=== PATIENT | male | born 1955 | race Two or more races ===

== ENCOUNTER 2016-11-12 15:10 | Inpatient (IN) | payer OTHER ==
[~2016-11-12] VITALS: Ht 180.3 cm; Wt 97.0 kg
[2016-11-12 17:14] LABS: CONDITION Y; Hematocrit 47.5 % (41.0-53.0); Mean Corpuscular Hemoglobin 29.9 pg (28.0-32.0); Mean Corpuscular Hgb Conc. 33.7 g/dL (32.0-36.0); Mean Corpuscular Volume 88.8 fL (80.0-100.0); Mean Platelet Volume 9.3 fL (7.4-10.4); Platelet Count (auto) 337 10^3/uL (140-450); Red Cell Distribution Width 13.4 % (11.6-16.0); SUSPECT SEE PRINTOUT; White Blood Cell 22.1 10^3/uL (4.4-10.8)
[2016-11-12 17:16] LABS: Metamyelocytes % 0; Myelocytes % 0; Promyelocytes % 0; Reactive Lymphocytes 0
[2016-11-12 17:30] LABS: Albumin 3.8 g/dL (3.4-5.0); Amylase 187 U/L (25-115); Anion Gap 13 (5-15); Aspartate Aminotransferase 36 U/L (15-37); BUN/Creatinine Ratio 10.4; Blood Urea Nitrogen 13 mg/dL (7-18); Calcium 8.6 mg/dL (8.5-10.1); Carbon Dioxide 25 mmol/L (21-32); Chloride 103 mmol/L (98-107); GFR African American 76 mL/min; GFR Non-African American 63 mL/min; Glucose 133 mg/dL (74-106); Potassium 4.1 mmol/L (3.5-5.1); Sodium 141 mmol/L (136-145)
[2016-11-12 17:35] LABS: Alkaline Phosphatase 72 U/L (45-117); Bilirubin, Total 2.2 mg/dL (0.2-1.0)
[2016-11-12 17:38] LABS: Platelet Estimate Adequate; Stomatocytes Few
[2016-11-13] MEDS ORDERED: MORPHINE SULFATE 4 MG/ML SYRG IV ONE (01:15)
[2016-11-13] MEDS ORDERED: SODIUM CHLORIDE 0.9% 1,000 ML IV ONE ×2 (01:15→05:30)
[2016-11-13] MEDS ORDERED: ONDANSETRON HCL 4 MG/2 ML VIAL IV ONE ×2 (01:15→04:15)
[2016-11-13] MEDS ORDERED: metroNIDAZOLE 500MG/100ML 100 ML IV ONE (04:00)
[2016-11-13] MEDS ORDERED: cefTRIAXone 1GM/50ML D5W 50 ML IV ONE (04:00)
[2016-11-13] MEDS: SODIUM CHLORIDE 0.9% 1,000 ML IV SCH ×8 (04:15→18:47)
[2016-11-13] MEDS ORDERED: HYDROmorphone HCL 2 MG/ML VL IV ONE (04:15)
[2016-11-13 04:40] LABS: INR 1.15 (0.9-1.15); Partial Thromboplastin Time 32.6 sec (22.64-33.71); Prothrombin Time 12.6 sec (9.37-12.3)
[2016-11-13] MEDS: metroNIDAZOLE 500MG/100ML 100 ML IV SCH ×3 (06:00→21:36)
[2016-11-13] MEDS: PANTOPRAZOLE SODIUM 40 MG/10 ML VIAL IV SCH ×2 (06:37→10:00)
[2016-11-13] MEDS ORDERED: fentaNYL CITRATE 100 MCG/2 ML VL ONE (07:23)
[2016-11-13] MEDS ORDERED: NEOSTIGMINE 1 MG/ML INJ (10mg/10ML VIAL) ONE (07:23)
[2016-11-13] MEDS ORDERED: KETOROLAC TROMETH 60MG/2ML VIAL IM ONE (07:23)
[2016-11-13] MEDS ORDERED: ROCURONIUM 10MG/ML 10ML VIAL IV ONE (07:23)
[2016-11-13] MEDS ORDERED: GLYCOPYRROLATE 0.2 MG/ML 1ML VIAL ONE (07:23)
[2016-11-13] MEDS ORDERED: MIDAZOLAM HCL 1MG/1ML-2 ML VIAL ONE (07:23)
[2016-11-13] MEDS ORDERED: MEPERIDINE HCL (50 MG/ML) 1 ML VIAL ONE (07:23)
[2016-11-13] MEDS ORDERED: SODIUM CHLORIDE LOCK 20 ML ONE (07:23)
[2016-11-13] MEDS ORDERED: ONDANSETRON HCL 4 MG/2 ML VIAL ONE (07:23)
[2016-11-13] MEDS ORDERED: SUCCINYLCHOLINE CHLORIDE 20 MG/ML 10ML VIAL IV ONE (07:44)
[2016-11-13] MEDS ORDERED: LIDOCAINE 1% HCL (LOCAL ANESTH.) INJ 20ML MDV ONE (07:44)
[2016-11-13 07:45] VITALS: BP 147/89
[2016-11-13] MEDS ORDERED: ceFAZolin 1GM/50ML D5W 50 ML IV ONE (08:15)
[2016-11-13] MEDS ORDERED: POVIDONE IODINE 10 % TOPICAL OINT 30GM TOP ONE (08:33)
[2016-11-13] MEDS ORDERED: PROPOFOL 10 MG/ML 20 ML IV ONE (08:43)
[2016-11-13] MEDS ORDERED: METOCLOPRAMIDE HCL 5MG/ml INJ 2ml VIAL IV ONE (10:00)
[2016-11-13] MEDS ORDERED: HYDROmorphone HCL 2 MG/ML VL IV PRN (10:00)
[2016-11-13] MEDS: cefTRIAXone 1GM/50ML D5W 50 ML IV SCH (12:29)
[2016-11-13 12:40] VITALS: BP 136/88
[2016-11-13 13:09] LABS: REFLEX LACTIC ACID YES OR NO NO
[2016-11-13 17:13] VITALS: BP 127/74
[2016-11-13] MEDS: MORPHINE SULFATE 4 MG/ML SYRG IV PRN (20:43)
[2016-11-13] MEDS: ONDANSETRON HCL 4 MG/2 ML VIAL IV PRN (20:43)
[2016-11-13 22:00] VITALS: BP 160/96
[2016-11-14] MEDS: SODIUM CHLORIDE 0.9% 1,000 ML IV SCH ×4 (03:46→15:09)
[2016-11-14] MEDS: MORPHINE SULFATE 4 MG/ML SYRG IV PRN ×4 (03:46→20:30)
[2016-11-14] MEDS: ONDANSETRON HCL 4 MG/2 ML VIAL IV PRN ×4 (03:46→20:30)
[2016-11-14 05:30] VITALS: BP 120/59
[2016-11-14] MEDS: metroNIDAZOLE 500MG/100ML 100 ML IV SCH ×3 (05:34→21:41)
[2016-11-14 06:13] LABS: Basophils # (auto) 0 uL; CONDITION Y; Eosinophils # (auto) 0 uL; Hemoglobin 12.8 g/dL (13.5-17.5); Lymphocytes # (auto) 0.5 uL; Lymphocytes % (auto) 3.5 % (10.0-50.0); Mean Corpuscular Hemoglobin 30.3 pg (28.0-32.0); Mean Corpuscular Hgb Conc. 33.6 g/dL (32.0-36.0); Mean Platelet Volume 9.5 fL (7.4-10.4); Monocytes # (auto) 0.3 uL; Monocytes % (auto) 2.4 % (0.0-12.0); Neutrophils # (auto) 13.6 uL; Neutrophils % (auto) 94.1 % (37.0-80.0); Platelet Count (auto) 233 10^3/uL (140-450); Red Cell Distribution Width 13.6 % (11.6-16.0); White Blood Cell 14.4 10^3/uL (4.4-10.8)
[2016-11-14 06:35] LABS: Albumin 2.7 g/dL (3.4-5.0); BUN/Creatinine Ratio 16.7; Calcium 8.3 mg/dL (8.5-10.1); Potassium 4.7 mmol/L (3.5-5.1)
[2016-11-14 06:38] LABS: Bilirubin, Total 1.2 mg/dL (0.2-1.0); Total Protein 6.5 g/dL (6.4-8.2)
[2016-11-14 08:32] VITALS: BP 136/88
[2016-11-14] MEDS: cefTRIAXone 1GM/50ML D5W 50 ML IV SCH (08:45)
[2016-11-14] MEDS: PANTOPRAZOLE SODIUM 40 MG/10 ML VIAL IV SCH (10:12)
[2016-11-14 13:00] VITALS: BP 142/86
[2016-11-14 16:53] VITALS: BP 157/98
[2016-11-14 21:39] VITALS: BP 135/84
[2016-11-15] MEDS: SODIUM CHLORIDE 0.9% 1,000 ML IV SCH ×4 (00:34→17:27)
[2016-11-15 05:08] LABS: Basophils # (auto) 0 uL; Basophils % (auto) 0.2 % (0.0-2.0); CONDITION Y; Eosinophils # (auto) 0 uL; Eosinophils % (auto) 0.5 % (0.0-7.0); Hematocrit 37.9 % (41.0-53.0); Hemoglobin 12.9 g/dL (13.5-17.5); Lymphocytes # (auto) 1.3 uL; Mean Corpuscular Hemoglobin 30.4 pg (28.0-32.0); Mean Corpuscular Hgb Conc. 33.9 g/dL (32.0-36.0); Mean Corpuscular Volume 89.6 fL (80.0-100.0); Mean Platelet Volume 8.9 fL (7.4-10.4); Monocytes # (auto) 0.4 uL; Neutrophils # (auto) 8.1 uL; Neutrophils % (auto) 82.3 % (37.0-80.0); Platelet Count (auto) 289 10^3/uL (140-450); Red Cell Distribution Width 13.2 % (11.6-16.0); White Blood Cell 9.8 10^3/uL (4.4-10.8)
[2016-11-15] MEDS: metroNIDAZOLE 500MG/100ML 100 ML IV SCH ×2 (05:12→17:35)
[2016-11-15] MEDS: MORPHINE SULFATE 4 MG/ML SYRG IV PRN ×3 (05:13→17:32)
[2016-11-15] MEDS: ONDANSETRON HCL 4 MG/2 ML VIAL IV PRN (05:13)
[2016-11-15 05:20] VITALS: BP 139/89
[2016-11-15 07:30] VITALS: BP 139/69
[2016-11-15 08:30] VITALS: BP 139/69
[2016-11-15] MEDS: PANTOPRAZOLE SODIUM 40 MG/10 ML VIAL IV SCH (10:19)
[2016-11-15] MEDS: cefTRIAXone 1GM/50ML D5W 50 ML IV SCH (10:19)
[2016-11-15] MEDS ORDERED: LEVO500T21 PO (11:59)
[2016-11-15] MEDS ORDERED: PANT40TA2 PO (11:59)
[2016-11-15 12:30] VITALS: BP 128/83
[2016-11-15 17:12] VITALS: BP 135/84
== END 2016-11-15 18:40 | disposition home or self-care (01) | DRG 854 ==
LOC: ER 15:17 → OVERFLOW 15:18 → WEST WING 11-13 10:55
PROVIDERS: ADMIT Family Medicine; ATTEND Nurse Practitioner Acute Care
PROC: 0FT44ZZ Resection of Gallbladder, Percutaneous Endoscopic Approach (ICD-10-PCS; principal; 2016-11-13 08:43)
DX: A41.9 Sepsis, unspecified organism (principal); K81.0 Acute cholecystitis; E66.9 Obesity, unspecified; Z68.29 Body mass index [BMI] 29.0-29.9, adult; Z82.49 Family history of ischemic heart disease and other diseases of the circulatory system; Z71.89 Other specified counseling; F12.90 Cannabis use, unspecified, uncomplicated
CPT/HCPCS: 36415; 71010; 74176; 80053; 82150; 82247; 83605; 83690; 84132; 84484; 85007; 85025; 85027; 85610; 85730; 86850; 86900; 86901; 87040; 93005; 96374; 96375; 96376; C9113; J0330; J0690; J0696; J1885; J2001; J2250; J2405; J2704; J3490

== ENCOUNTER 2020-04-02 07:27 | Inpatient (IN) | payer OTHER ==
[~2020-04-02] VITALS: Ht 180.3 cm; Wt 86.4 kg
[~2020-04-02 07:27] MED LIST: LEVO500T21 PO; PANT40TA2 PO
[2020-04-02 08:30] LABS: Urine Bacteria NONE SEEN /hpf (None Seen); Urine Blood Negative /uL (Negative); Urine Hyaline Cast FEW /lpf (0 - 2); Urine Mucus FEW (None Seen); Urine Specific Gravity 1.016 (1.001-1.035); Urine WBC 1 /hpf (0 - 3)
[2020-04-02 08:32] LABS: Basophils # (auto) 0 10 ^3/uL (0-0.2); Basophils % (auto) 0.2 % (0.0-2.0); Eosinophils # (auto) 0 10 ^3/uL (0-0.8); Eosinophils % (auto) 0.1 % (0.0-7.0); Hematocrit 49.7 % (41.0-53.0); Hemoglobin 16.5 g/dL (13.5-17.5); Lymphocytes # (auto) 0.6 10 ^3/uL (0.4-5.4); Lymphocytes % (auto) 3.7 % (10.0-50.0); Mean Corpuscular Hemoglobin 29.5 pg (28.0-32.0); Mean Corpuscular Hgb Conc. 33.1 g/dL (32.0-36.0); Mean Corpuscular Volume 88.9 fL (80.0-100.0); Monocytes # (auto) 0.5 10 ^3/uL (0-1.3); Monocytes % (auto) 3.1 % (0.0-12.0); Neutrophils # (auto) 14.2 10 ^3/uL (1.6-8.6); Neutrophils % (auto) 92.9 % (37.0-80.0); Nucleated Red Blood Cells % 0.1 %; Platelet Count (auto) 288 10^3/uL (140-450); Red Blood Cells 5.59 10^6/uL (4.5-5.90); Red Cell Distribution Width 13.4 % (11.8-14.3); White Blood Cell 15.3 10^3/uL (4.4-10.8)
[2020-04-02 08:37] LABS: Albumin 4.2 g/dL (3.4-5.0); Calcium 9.5 mg/dL (8.5-10.1); Potassium 3.4 mmol/L (3.5-5.1)
[2020-04-02 08:46] LABS: BUN/Creatinine Ratio 14.4; Bilirubin, Total 4.4 mg/dL (0.2-1.0); Total Protein 7.7 g/dL (6.4-8.2)
[2020-04-02] MEDS ORDERED: PANTOPRAZOLE 40 MG/10 ML VIAL INJ IV STA (09:11)
[2020-04-02] MEDS ORDERED: SODIUM CHLORIDE 0.9% 1,000 ML IVB ONE (09:15)
[2020-04-02] MEDS ORDERED: PROCHLORPERAZINE EDISYLATE 5 MG/ML 2ML VIAL IV ONE (09:15)
[2020-04-02] MEDS ORDERED: MORPHINE SULFATE 4 MG/ML SYR/VIAL IV ONE (09:15)
[2020-04-02] MEDS ORDERED: MORPHINE SULF INJ 2 MG/ML SYRINGE 1ML IV PRN (12:15)
[2020-04-02] MEDS ORDERED: POTASSIUM CHLORIDE 20 MEQ, LIDOCAINE 1% (LOCAL ANESTH.) 2 ML in SODIUM CHL 0.9% 100 ML IV ONE (12:15)
[2020-04-02] MEDS: LACTATED RINGER'S 1,000 ML IV SCH ×2 (12:15→20:15)
[2020-04-02] MEDS ORDERED: NITROGLYCERIN 0.4 MG SL TAB SL PRN (12:15)
[2020-04-02] MEDS: HYDROmorphone HCL 2 MG/ML VL IV PRN ×4 (14:00→22:12)
[2020-04-02] MEDS: ONDANSETRON HCL 4 MG/2 ML VIAL IV PRN ×2 (18:49→22:13)
[2020-04-02 20:00] VITALS: BP 148/102
[2020-04-02 22:00] VITALS: BP 148/102
[2020-04-03] MEDS: HYDROmorphone HCL 2 MG/ML VL IV PRN ×6 (02:18→20:41)
[2020-04-03] MEDS: LACTATED RINGER'S 1,000 ML IV SCH ×4 (04:15→22:56)
[2020-04-03 05:00] VITALS: BP 135/94
[2020-04-03] MEDS: ONDANSETRON HCL 4 MG/2 ML VIAL IV PRN (05:39)
[2020-04-03 07:25] LABS: Basophils # (auto) 0 10 ^3/uL (0-0.2); Basophils % (auto) 0.2 % (0.0-2.0); Eosinophils # (auto) 0 10 ^3/uL (0-0.8); Hematocrit 47.2 % (41.0-53.0); Hemoglobin 15.8 g/dL (13.5-17.5); Lymphocytes # (auto) 0.3 10 ^3/uL (0.4-5.4); Lymphocytes % (auto) 2.2 % (10.0-50.0); Mean Corpuscular Hemoglobin 30.1 pg (28.0-32.0); Mean Corpuscular Hgb Conc. 33.4 g/dL (32.0-36.0); Monocytes # (auto) 0.5 10 ^3/uL (0-1.3); Monocytes % (auto) 3.2 % (0.0-12.0); Neutrophils # (auto) 13.6 10 ^3/uL (1.6-8.6); Neutrophils % (auto) 94.4 % (37.0-80.0); Nucleated Red Blood Cells % 0.3 %; Platelet Count (auto) 215 10^3/uL (140-450); Red Blood Cells 5.25 10^6/uL (4.5-5.90); Red Cell Distribution Width 13.8 % (11.8-14.3); White Blood Cell 14.4 10^3/uL (4.4-10.8)
[2020-04-03 07:43] LABS: Albumin 3.5 g/dL (3.4-5.0); Calcium 8.7 mg/dL (8.5-10.1); Potassium 4.5 mmol/L (3.5-5.1)
[2020-04-03 07:52] LABS: BUN/Creatinine Ratio 12.7; Bilirubin, Total 3.3 mg/dL (0.2-1.0); Total Protein 6.9 g/dL (6.4-8.2)
[2020-04-03 09:00] VITALS: BP 128/90
[2020-04-03] MEDS: PANTOPRAZOLE 40 MG/10 ML VIAL INJ IV SCH (10:18)
[2020-04-03] MEDS ORDERED: LORazepam 2MG/ML-1ML VIAL IV ONE (12:15)
[2020-04-03 12:34] LABS: Hepatitis B Surface Antibody Negative
[2020-04-03 13:00] VITALS: BP 139/89
[2020-04-03 13:11] LABS: Hepatitis A Total Antibody Positive
[2020-04-03 13:37] LABS: Hepatitis B Core Total AB Negative; Hepatitis B Surface Antigen Negative (Negative); Hepatitis C Antibody Negative (Negative)
[2020-04-03 17:00] VITALS: BP 143/93
[2020-04-03 20:00] VITALS: BP 130/84
[2020-04-03 22:00] VITALS: BP 130/84
[2020-04-04] MEDS: HYDROmorphone HCL 2 MG/ML VL IV PRN ×5 (00:55→20:05)
[2020-04-04 05:00] VITALS: BP 140/82
[2020-04-04] MEDS: LACTATED RINGER'S 1,000 ML IV SCH ×3 (05:03→18:40)
[2020-04-04 06:22] LABS: Basophils # (auto) 0 10 ^3/uL (0-0.2); Basophils % (auto) 0.1 % (0.0-2.0); Eosinophils # (auto) 0 10 ^3/uL (0-0.8); Hematocrit 43.7 % (41.0-53.0); Hemoglobin 14.5 g/dL (13.5-17.5); Lymphocytes # (auto) 0.4 10 ^3/uL (0.4-5.4); Lymphocytes % (auto) 3.5 % (10.0-50.0); Mean Corpuscular Hemoglobin 29.6 pg (28.0-32.0); Mean Corpuscular Hgb Conc. 33.2 g/dL (32.0-36.0); Mean Corpuscular Volume 89.2 fL (80.0-100.0); Monocytes # (auto) 0.5 10 ^3/uL (0-1.3); Neutrophils # (auto) 10.7 10 ^3/uL (1.6-8.6); Neutrophils % (auto) 92.4 % (37.0-80.0); Nucleated Red Blood Cells % 0.1 %; Platelet Count (auto) 188 10^3/uL (140-450); White Blood Cell 11.6 10^3/uL (4.4-10.8)
[2020-04-04 06:40] LABS: Potassium 3.4 mmol/L (3.5-5.1)
[2020-04-04 07:04] LABS: Albumin 2.9 g/dL (3.4-5.0); BUN/Creatinine Ratio 16.1; Bilirubin, Total 3.4 mg/dL (0.2-1.0); Calcium 8.3 mg/dL (8.5-10.1); Magnesium 2.2 mg/dL (1.6-2.6); Total Protein 6.4 g/dL (6.4-8.2)
[2020-04-04 09:00] VITALS: BP 131/87
[2020-04-04] MEDS: PANTOPRAZOLE 40 MG/10 ML VIAL INJ IV SCH (10:09)
[2020-04-04 13:00] VITALS: BP 129/85
[2020-04-04 14:22] LABS: INR 1.11 (0.9-1.15)
[2020-04-04] MEDS: POTASSIUM CHL 20MEQ/100ML 100 ML IV SCH ×2 (16:44→18:36)
[2020-04-04 16:58] VITALS: BP 142/90
[2020-04-04 20:00] VITALS: BP 133/87
[2020-04-04] MEDS: ONDANSETRON HCL 4 MG/2 ML VIAL IV PRN (20:20)
[2020-04-04 22:00] VITALS: BP 133/87
[2020-04-05] MEDS: HYDROmorphone HCL 2 MG/ML VL IV PRN ×6 (01:17→23:08)
[2020-04-05] MEDS: LACTATED RINGER'S 1,000 ML IV SCH ×4 (01:21→21:20)
[2020-04-05 05:40] VITALS: BP 143/99
[2020-04-05] MEDS: ONDANSETRON HCL 4 MG/2 ML VIAL IV PRN (06:46)
[2020-04-05 06:58] LABS: Basophils # (auto) 0 10 ^3/uL (0-0.2); Basophils % (auto) 0.1 % (0.0-2.0); Eosinophils # (auto) 0 10 ^3/uL (0-0.8); Hemoglobin 13.6 g/dL (13.5-17.5); Lymphocytes # (auto) 0.3 10 ^3/uL (0.4-5.4); Lymphocytes % (auto) 3.8 % (10.0-50.0); Mean Corpuscular Hemoglobin 29.8 pg (28.0-32.0); Mean Corpuscular Hgb Conc. 33.1 g/dL (32.0-36.0); Monocytes # (auto) 0.5 10 ^3/uL (0-1.3); Monocytes % (auto) 6.2 % (0.0-12.0); Neutrophils # (auto) 7.7 10 ^3/uL (1.6-8.6); Neutrophils % (auto) 89.9 % (37.0-80.0); Nucleated Red Blood Cells % 0.1 %; Platelet Count (auto) 193 10^3/uL (140-450); Red Blood Cells 4.55 10^6/uL (4.5-5.90); Red Cell Distribution Width 13.4 % (11.8-14.3); White Blood Cell 8.6 10^3/uL (4.4-10.8)
[2020-04-05 07:20] LABS: Albumin 2.5 g/dL (3.4-5.0); Potassium 3.7 mmol/L (3.5-5.1)
[2020-04-05 07:26] LABS: Bilirubin, Direct 0.8 mg/dL (0-0.2); Bilirubin, Total 2.8 mg/dL (0.2-1.0); Total Protein 6.3 g/dL (6.4-8.2)
[2020-04-05 08:14] VITALS: BP 146/88
[2020-04-05] MEDS ORDERED: IOHEXOL 300 MG/ML 100ML BOTTLE IJ ONE (10:03)
[2020-04-05] MEDS ORDERED: MIDAZOLAM HCL 1MG/1ML-2 ML VIAL ONE (10:28)
[2020-04-05] MEDS ORDERED: fentaNYL CITRATE 100 MCG/2 ML VL ONE (10:28)
[2020-04-05] MEDS ORDERED: SUCCINYLCHOLINE CHLORIDE 20 MG/ML 10ML VIAL IV ONE (10:29)
[2020-04-05] MEDS ORDERED: PROPOFOL 10 MG/ML 20 ML IV ONE (10:40)
[2020-04-05 12:00] VITALS: BP 139/94
[2020-04-05] MEDS: PANTOPRAZOLE 40 MG/10 ML VIAL INJ IV SCH (13:30)
[2020-04-05 16:51] VITALS: BP 144/92
[2020-04-05 22:05] VITALS: BP 147/87
[2020-04-06] MEDS: ONDANSETRON HCL 4 MG/2 ML VIAL IV PRN ×2 (03:47→15:36)
[2020-04-06] MEDS: HYDROmorphone HCL 2 MG/ML VL IV PRN ×6 (03:50→22:01)
[2020-04-06 05:14] VITALS: BP 139/80
[2020-04-06 06:05] LABS: Basophils # (auto) 0 10 ^3/uL (0-0.2); Basophils % (auto) 0.1 % (0.0-2.0); Eosinophils # (auto) 0 10 ^3/uL (0-0.8); Eosinophils % (auto) 0.1 % (0.0-7.0); Hematocrit 36.9 % (41.0-53.0); Hemoglobin 12.2 g/dL (13.5-17.5); Lymphocytes # (auto) 0.4 10 ^3/uL (0.4-5.4); Lymphocytes % (auto) 4.9 % (10.0-50.0); Mean Corpuscular Hemoglobin 29.6 pg (28.0-32.0); Mean Corpuscular Hgb Conc. 32.9 g/dL (32.0-36.0); Mean Corpuscular Volume 90.1 fL (80.0-100.0); Monocytes # (auto) 0.7 10 ^3/uL (0-1.3); Monocytes % (auto) 8.4 % (0.0-12.0); Neutrophils % (auto) 86.5 % (37.0-80.0); Nucleated Red Blood Cells % 0.1 %; Platelet Count (auto) 176 10^3/uL (140-450); Red Cell Distribution Width 13.5 % (11.8-14.3)
[2020-04-06 06:45] LABS: Potassium 3.4 mmol/L (3.5-5.1)
[2020-04-06 07:03] LABS: Albumin 2.1 g/dL (3.4-5.0); BUN/Creatinine Ratio 16.7; Bilirubin, Total 2.3 mg/dL (0.2-1.0); Calcium 7.8 mg/dL (8.5-10.1); Total Protein 5.5 g/dL (6.4-8.2)
[2020-04-06] MEDS: PANTOPRAZOLE 40 MG/10 ML VIAL INJ IV SCH ×2 (08:41→22:01)
[2020-04-06 09:08] VITALS: BP 144/79
[2020-04-06] MEDS: LACTATED RINGER'S 1,000 ML IV SCH ×3 (10:40→22:28)
[2020-04-06 12:19] VITALS: BP 152/89
[2020-04-06] MEDS: SUCRALFATE 1 GM/10 ML ORAL SUSP PO SCH ×3 (13:05→22:01)
[2020-04-06] MEDS ORDERED: POTASSIUM CHLORIDE 20 MEQ, LIDOCAINE 1% (LOCAL ANESTH.) 2 ML in SODIUM CHL 0.9% 100 ML IV ONE (15:45)
[2020-04-06 16:05] VITALS: BP 152/79
[2020-04-06 22:00] VITALS: BP 161/108
[2020-04-07] MEDS: HYDROmorphone HCL 2 MG/ML VL IV PRN ×8 (00:44→23:21)
[2020-04-07] MEDS: LACTATED RINGER'S 1,000 ML IV SCH ×4 (03:12→15:30)
[2020-04-07 05:00] VITALS: BP 154/92
[2020-04-07] MEDS: SUCRALFATE 1 GM/10 ML ORAL SUSP PO SCH ×4 (06:01→22:02)
[2020-04-07 06:40] LABS: Potassium 3.4 mmol/L (3.5-5.1)
[2020-04-07 08:14] LABS: Basophils # (auto) 0 10 ^3/uL (0-0.2); Basophils % (auto) 0.1 % (0.0-2.0); Eosinophils # (auto) 0 10 ^3/uL (0-0.8); Eosinophils % (auto) 0.2 % (0.0-7.0); Hematocrit 36.9 % (41.0-53.0); Hemoglobin 12.4 g/dL (13.5-17.5); Lymphocytes # (auto) 0.5 10 ^3/uL (0.4-5.4); Lymphocytes % (auto) 5.2 % (10.0-50.0); Mean Corpuscular Hgb Conc. 33.6 g/dL (32.0-36.0); Mean Corpuscular Volume 89.5 fL (80.0-100.0); Monocytes # (auto) 0.8 10 ^3/uL (0-1.3); Monocytes % (auto) 8.5 % (0.0-12.0); Nucleated Red Blood Cells % 0.1 %; Platelet Count (auto) 191 10^3/uL (140-450); Red Blood Cells 4.12 10^6/uL (4.5-5.90); Red Cell Distribution Width 13.6 % (11.8-14.3); White Blood Cell 9.3 10^3/uL (4.4-10.8)
[2020-04-07 09:00] VITALS: BP 137/90
[2020-04-07] MEDS: PANTOPRAZOLE 40 MG/10 ML VIAL INJ IV SCH ×2 (09:17→22:02)
[2020-04-07 10:41] LABS: BUN/Creatinine Ratio 14.9; Bilirubin, Total 1.7 mg/dL (0.2-1.0); Calcium 8.1 mg/dL (8.5-10.1)
[2020-04-07 13:00] VITALS: BP 138/78
[2020-04-07] MEDS ORDERED: POTASSIUM CHL 20 Meq TABLET PO ONE (15:30)
[2020-04-07 17:00] VITALS: BP 141/83
[2020-04-07 20:00] VITALS: BP 145/72
[2020-04-07 22:00] VITALS: BP 145/72
[2020-04-07] MEDS ORDERED: ACETAMINOPHEN 325 MG TAB PO PRN (22:00)
[2020-04-08 05:00] VITALS: BP 160/86
[2020-04-08] MEDS: HYDROmorphone HCL 2 MG/ML VL IV PRN (05:36)
[2020-04-08] MEDS: LACTATED RINGER'S 1,000 ML IV SCH (05:37)
[2020-04-08] MEDS: SUCRALFATE 1 GM/10 ML ORAL SUSP PO SCH ×4 (06:39→19:47)
[2020-04-08 07:32] LABS: Magnesium 2.2 mg/dL (1.6-2.6); Potassium 3.3 mmol/L (3.5-5.1)
[2020-04-08] MEDS ORDERED: POTASSIUM CHL 20 Meq TABLET PO ONE (09:15)
[2020-04-08] MEDS: PANTOPRAZOLE 40 MG/10 ML VIAL INJ IV SCH ×2 (09:24→19:47)
[2020-04-08 09:54] VITALS: BP 153/85
[2020-04-08] MEDS ORDERED: amLODIPine BESYLATE 5 MG TAB PO ONE (10:00)
[2020-04-08] MEDS ORDERED: HYDROcodone-ACET 5/325MG TAB PO PRN (10:00)
[2020-04-08] MEDS: KETOROLAC TROMETH 30 MG/ML 1ML VIAL IV PRN ×2 (11:30→19:47)
[2020-04-08] MEDS: SODIUM CHLORIDE 0.9% 1,000 ML IV SCH (11:43)
[2020-04-08] MEDS ORDERED: LACTULOSE 20Gm/30ML SOLN PO PRN (11:45)
[2020-04-08] MEDS ORDERED: HYOSCYAMINE SULF 0.125 MG ODT TAB PO PRN (12:15)
[2020-04-08] MEDS ORDERED: cefTRIAXone 1GM/50ML D5W 50 ML IV ONE (13:00)
[2020-04-08] MEDS ORDERED: levoFLOXacin 750MG 150 ML IV ONE (13:15)
[2020-04-08 13:52] VITALS: BP 144/84
[2020-04-08 16:40] VITALS: BP 154/100
[2020-04-08] MEDS ORDERED: IOHEXOL 300 MG/ML 100ML BOTTLE IJ ONE (17:04)
[2020-04-08 17:58] LABS: Urine Bacteria NONE SEEN /hpf (None Seen); Urine Blood 1+ /uL (Negative); Urine Mucus FEW (None Seen); Urine Specific Gravity 1.018 (1.001-1.035); Urine WBC 3 /hpf (0 - 3)
[2020-04-08 22:00] VITALS: BP 131/81
[2020-04-09] VITALS (7 sets, daily range): BP systolic 127–154; BP diastolic 71–94
[2020-04-09] MEDS: KETOROLAC TROMETH 30 MG/ML 1ML VIAL IV PRN (02:17)
[2020-04-09 06:16] LABS: Basophils # (auto) 0 10 ^3/uL (0-0.2); Basophils % (auto) 0.1 % (0.0-2.0); Eosinophils # (auto) 0 10 ^3/uL (0-0.8); Eosinophils % (auto) 0.3 % (0.0-7.0); Hematocrit 38.1 % (41.0-53.0); Hemoglobin 12.9 g/dL (13.5-17.5); Lymphocytes # (auto) 0.6 10 ^3/uL (0.4-5.4); Mean Corpuscular Hgb Conc. 33.8 g/dL (32.0-36.0); Mean Corpuscular Volume 88.9 fL (80.0-100.0); Monocytes # (auto) 0.7 10 ^3/uL (0-1.3); Monocytes % (auto) 5.8 % (0.0-12.0); Neutrophils # (auto) 10.9 10 ^3/uL (1.6-8.6); Neutrophils % (auto) 88.8 % (37.0-80.0); Platelet Count (auto) 267 10^3/uL (140-450); Red Blood Cells 4.28 10^6/uL (4.5-5.90); Red Cell Distribution Width 13.5 % (11.8-14.3); White Blood Cell 12.3 10^3/uL (4.4-10.8)
[2020-04-09] MEDS: SUCRALFATE 1 GM/10 ML ORAL SUSP PO SCH ×4 (06:16→21:51)
[2020-04-09] MEDS: SODIUM CHLORIDE 0.9% 1,000 ML IV SCH (06:16)
[2020-04-09 06:46] LABS: BUN/Creatinine Ratio 13.9; Potassium 3.4 mmol/L (3.5-5.1)
[2020-04-09 06:53] LABS: Bilirubin, Total 0.9 mg/dL (0.2-1.0)
[2020-04-09] MEDS ORDERED: cefTRIAXone 1GM/50ML D5W 50 ML IV SCH (09:00)
[2020-04-09] MEDS: PANTOPRAZOLE 40 MG/10 ML VIAL INJ IV SCH ×2 (09:46→21:51)
[2020-04-09] MEDS: amLODIPine BESYLATE 5 MG TAB PO SCH (09:47)
[2020-04-09] MEDS ORDERED: levoFLOXacin 750MG 150 ML IV SCH (10:00)
[2020-04-09] MEDS: LACTATED RINGER'S 1,000 ML IV SCH ×3 (11:20→23:44)
[2020-04-09] MEDS: POTASSIUM CHL 20MEQ/100ML 100 ML IV SCH ×2 (15:08→18:00)
[2020-04-09] MEDS: HYDROmorphone HCL 2 MG/ML VL IV PRN ×2 (18:02→22:37)
[2020-04-09] MEDS: PIPERACILLIN-TAZOB 3.375GM 100 ML IV SCH (20:44)
[2020-04-10] MEDS: PIPERACILLIN-TAZOB 3.375GM 100 ML IV SCH ×5 (00:43→23:38)
[2020-04-10 05:21] VITALS: BP 153/65
[2020-04-10] MEDS: LACTATED RINGER'S 1,000 ML IV SCH ×3 (05:55→18:26)
[2020-04-10] MEDS: HYDROmorphone HCL 2 MG/ML VL IV PRN ×4 (06:00→19:44)
[2020-04-10] MEDS: SUCRALFATE 1 GM/10 ML ORAL SUSP PO SCH ×4 (06:36→22:20)
[2020-04-10 06:45] LABS: Basophils # (auto) 0 10 ^3/uL (0-0.2); Basophils % (auto) 0.1 % (0.0-2.0); Eosinophils # (auto) 0 10 ^3/uL (0-0.8); Eosinophils % (auto) 0.3 % (0.0-7.0); Hematocrit 38.6 % (41.0-53.0); Hemoglobin 12.6 g/dL (13.5-17.5); Lymphocytes # (auto) 0.5 10 ^3/uL (0.4-5.4); Lymphocytes % (auto) 3.3 % (10.0-50.0); Mean Corpuscular Hemoglobin 29.1 pg (28.0-32.0); Mean Corpuscular Hgb Conc. 32.7 g/dL (32.0-36.0); Monocytes # (auto) 0.8 10 ^3/uL (0-1.3); Monocytes % (auto) 5.3 % (0.0-12.0); Neutrophils # (auto) 14.2 10 ^3/uL (1.6-8.6); Nucleated Red Blood Cells % 0.1 %; Platelet Count (auto) 337 10^3/uL (140-450); Red Blood Cells 4.34 10^6/uL (4.5-5.90); Red Cell Distribution Width 13.4 % (11.8-14.3); White Blood Cell 15.6 10^3/uL (4.4-10.8)
[2020-04-10 08:27] VITALS: BP 141/83
[2020-04-10] MEDS: PANTOPRAZOLE 40 MG/10 ML VIAL INJ IV SCH ×2 (09:44→22:19)
[2020-04-10] MEDS: amLODIPine BESYLATE 5 MG TAB PO SCH ×2 (09:44→09:47)
[2020-04-10 13:14] VITALS: BP 137/84
[2020-04-10 16:45] VITALS: BP 145/73
[2020-04-10 22:00] VITALS: BP 158/83
[2020-04-11] MEDS: LACTATED RINGER'S 1,000 ML IV SCH ×4 (02:10→22:15)
[2020-04-11] MEDS: HYDROmorphone HCL 2 MG/ML VL IV PRN ×4 (02:11→20:54)
[2020-04-11 05:00] VITALS: BP 126/63
[2020-04-11] MEDS: PIPERACILLIN-TAZOB 3.375GM 100 ML IV SCH ×3 (05:35→17:04)
[2020-04-11] MEDS: SUCRALFATE 1 GM/10 ML ORAL SUSP PO SCH ×4 (06:45→22:46)
[2020-04-11 07:55] LABS: Basophils # (auto) 0 10 ^3/uL (0-0.2); Basophils % (auto) 0.2 % (0.0-2.0); Eosinophils # (auto) 0.1 10 ^3/uL (0-0.8); Eosinophils % (auto) 0.6 % (0.0-7.0); Hematocrit 40.2 % (41.0-53.0); Lymphocytes # (auto) 0.7 10 ^3/uL (0.4-5.4); Lymphocytes % (auto) 4.9 % (10.0-50.0); Mean Corpuscular Hemoglobin 28.8 pg (28.0-32.0); Mean Corpuscular Hgb Conc. 32.2 g/dL (32.0-36.0); Mean Corpuscular Volume 89.2 fL (80.0-100.0); Monocytes # (auto) 0.8 10 ^3/uL (0-1.3); Monocytes % (auto) 5.1 % (0.0-12.0); Neutrophils # (auto) 13.5 10 ^3/uL (1.6-8.6); Neutrophils % (auto) 89.2 % (37.0-80.0); Platelet Count (auto) 400 10^3/uL (140-450); Red Blood Cells 4.51 10^6/uL (4.5-5.90); Red Cell Distribution Width 13.7 % (11.8-14.3); White Blood Cell 15.1 10^3/uL (4.4-10.8)
[2020-04-11 09:00] VITALS: BP 137/75
[2020-04-11] MEDS: amLODIPine BESYLATE 5 MG TAB PO SCH (09:22)
[2020-04-11] MEDS: PANTOPRAZOLE 40 MG/10 ML VIAL INJ IV SCH ×2 (09:22→22:46)
[2020-04-11 13:00] VITALS: BP 140/72
[2020-04-11 17:00] VITALS: BP 134/76
[2020-04-11 22:00] VITALS: BP 137/85
[2020-04-12] MEDS: PIPERACILLIN-TAZOB 3.375GM 100 ML IV SCH ×5 (00:54→23:37)
[2020-04-12 05:00] VITALS: BP 140/86
[2020-04-12 05:15] LABS: Basophils # (auto) 0.1 10 ^3/uL (0-0.2); Basophils % (auto) 0.4 % (0.0-2.0); Eosinophils # (auto) 0.1 10 ^3/uL (0-0.8); Eosinophils % (auto) 0.6 % (0.0-7.0); Hemoglobin 12.5 g/dL (13.5-17.5); Lymphocytes # (auto) 0.7 10 ^3/uL (0.4-5.4)
[2020-04-12] MEDS: LACTATED RINGER'S 1,000 ML IV SCH ×3 (05:15→18:02)
[2020-04-12 05:16] LABS: Lymphocytes % (auto) 5.2 % (10.0-50.0); Mean Corpuscular Hgb Conc. 32.8 g/dL (32.0-36.0); Mean Corpuscular Volume 88.4 fL (80.0-100.0); Monocytes # (auto) 0.8 10 ^3/uL (0-1.3); Monocytes % (auto) 5.5 % (0.0-12.0); Neutrophils # (auto) 12.4 10 ^3/uL (1.6-8.6); Neutrophils % (auto) 88.3 % (37.0-80.0); Platelet Count (auto) 450 10^3/uL (140-450); Red Cell Distribution Width 13.7 % (11.8-14.3); White Blood Cell 14.1 10^3/uL (4.4-10.8)
[2020-04-12] MEDS: HYDROmorphone HCL 2 MG/ML VL IV PRN ×4 (05:32→23:43)
[2020-04-12] MEDS: SUCRALFATE 1 GM/10 ML ORAL SUSP PO SCH ×4 (07:10→21:39)
[2020-04-12 09:06] VITALS: BP 124/37
[2020-04-12] MEDS: PANTOPRAZOLE 40 MG/10 ML VIAL INJ IV SCH ×2 (09:54→21:39)
[2020-04-12] MEDS: amLODIPine BESYLATE 5 MG TAB PO SCH (10:02)
[2020-04-12 12:44] VITALS: BP 124/69
[2020-04-12 17:06] VITALS: BP 130/88
[2020-04-13 00:37] VITALS: BP 153/85
[2020-04-13] MEDS: LACTATED RINGER'S 1,000 ML IV SCH ×4 (00:48→20:43)
[2020-04-13] MEDS: PIPERACILLIN-TAZOB 3.375GM 100 ML IV SCH ×4 (05:16→23:19)
[2020-04-13] MEDS: HYDROmorphone HCL 2 MG/ML VL IV PRN ×5 (05:25→23:22)
[2020-04-13 05:26] LABS: Basophils # (auto) 0.1 10 ^3/uL (0-0.2); Basophils % (auto) 0.5 % (0.0-2.0); Eosinophils # (auto) 0.1 10 ^3/uL (0-0.8); Mean Corpuscular Hgb Conc. 34.7 g/dL (32.0-36.0); White Blood Cell 13.7 10^3/uL (4.4-10.8)
[2020-04-13 05:28] LABS: Eosinophils % (auto) 0.8 % (0.0-7.0); Hematocrit 37.5 % (41.0-53.0); Mean Corpuscular Hemoglobin 30.5 pg (28.0-32.0); Monocytes # (auto) 0.8 10 ^3/uL (0-1.3); Monocytes % (auto) 5.5 % (0.0-12.0); Neutrophils # (auto) 11.8 10 ^3/uL (1.6-8.6); Neutrophils % (auto) 86.2 % (37.0-80.0); Platelet Count (auto) 540 10^3/uL (140-450); Red Blood Cells 4.26 10^6/uL (4.5-5.90); Red Cell Distribution Width 13.5 % (11.8-14.3)
[2020-04-13 05:59] VITALS: BP 140/84
[2020-04-13] MEDS: SUCRALFATE 1 GM/10 ML ORAL SUSP PO SCH ×4 (06:30→20:43)
[2020-04-13 08:31] VITALS: BP 154/71
[2020-04-13] MEDS: PANTOPRAZOLE 40 MG/10 ML VIAL INJ IV SCH ×2 (09:58→20:43)
[2020-04-13] MEDS: amLODIPine BESYLATE 5 MG TAB PO SCH (09:59)
[2020-04-13 13:43] VITALS: BP 149/79
[2020-04-13 16:28] VITALS: BP 141/81
[2020-04-14] MEDS: HYDROmorphone HCL 2 MG/ML VL IV PRN ×7 (02:57→22:50)
[2020-04-14] MEDS: LACTATED RINGER'S 1,000 ML IV SCH ×4 (03:35→23:35)
[2020-04-14] MEDS: ONDANSETRON HCL 4 MG/2 ML VIAL IV PRN ×2 (04:51→09:01)
[2020-04-14] MEDS: SUCRALFATE 1 GM/10 ML ORAL SUSP PO SCH ×4 (05:29→20:22)
[2020-04-14] MEDS: PIPERACILLIN-TAZOB 3.375GM 100 ML IV SCH ×4 (05:29→23:05)
[2020-04-14 06:04] LABS: Basophils # (auto) 0.1 10 ^3/uL (0-0.2); Basophils % (auto) 0.3 % (0.0-2.0); Eosinophils # (auto) 0.1 10 ^3/uL (0-0.8); Eosinophils % (auto) 0.4 % (0.0-7.0); Hematocrit 39.1 % (41.0-53.0); Hemoglobin 12.7 g/dL (13.5-17.5); Lymphocytes # (auto) 0.7 10 ^3/uL (0.4-5.4); Lymphocytes % (auto) 4.7 % (10.0-50.0); Mean Corpuscular Hemoglobin 29.1 pg (28.0-32.0); Mean Corpuscular Hgb Conc. 32.4 g/dL (32.0-36.0); Mean Corpuscular Volume 89.9 fL (80.0-100.0); Monocytes # (auto) 0.8 10 ^3/uL (0-1.3); Neutrophils # (auto) 14.3 10 ^3/uL (1.6-8.6); Neutrophils % (auto) 89.6 % (37.0-80.0); Red Blood Cells 4.35 10^6/uL (4.5-5.90); Red Cell Distribution Width 13.5 % (11.8-14.3); White Blood Cell 15.9 10^3/uL (4.4-10.8)
[2020-04-14 06:25] VITALS: BP 146/83
[2020-04-14 06:29] LABS: Calcium 8.1 mg/dL (8.5-10.1); Magnesium 2.2 mg/dL (1.6-2.6); Potassium 3.7 mmol/L (3.5-5.1)
[2020-04-14 06:31] LABS: BUN/Creatinine Ratio 6.3
[2020-04-14 08:02] LABS: Platelet Count (auto) 619 10^3/uL (140-450)
[2020-04-14 09:01] VITALS: BP 156/95
[2020-04-14] MEDS: PANTOPRAZOLE 40 MG/10 ML VIAL INJ IV SCH ×2 (09:01→20:21)
[2020-04-14] MEDS: amLODIPine BESYLATE 5 MG TAB PO SCH (09:03)
[2020-04-14 11:56] VITALS: BP 155/83
[2020-04-14 17:00] VITALS: BP 127/85
[2020-04-14 22:00] VITALS: BP 148/89
[2020-04-15] MEDS: HYDROmorphone HCL 2 MG/ML VL IV PRN ×6 (01:01→23:08)
[2020-04-15] MEDS: PIPERACILLIN-TAZOB 3.375GM 100 ML IV SCH ×3 (05:13→17:38)
[2020-04-15] MEDS: LACTATED RINGER'S 1,000 ML IV SCH ×3 (05:13→19:35)
[2020-04-15] MEDS: SUCRALFATE 1 GM/10 ML ORAL SUSP PO SCH ×4 (05:14→22:00)
[2020-04-15 05:17] VITALS: BP 144/84
[2020-04-15 06:18] LABS: Basophils # (auto) 0.1 10 ^3/uL (0-0.2); Lymphocytes # (auto) 0.8 10 ^3/uL (0.4-5.4); Monocytes # (auto) 0.8 10 ^3/uL (0-1.3); Red Cell Distribution Width 13.4 % (11.8-14.3)
[2020-04-15 06:24] LABS: Basophils % (auto) 0.3 % (0.0-2.0); Eosinophils # (auto) 0 10 ^3/uL (0-0.8); Eosinophils % (auto) 0.3 % (0.0-7.0); Hematocrit 37.1 % (41.0-53.0); Hemoglobin 12.5 g/dL (13.5-17.5); Lymphocytes % (auto) 4.9 % (10.0-50.0); Mean Corpuscular Hemoglobin 29.9 pg (28.0-32.0); Mean Corpuscular Hgb Conc. 33.6 g/dL (32.0-36.0); Mean Corpuscular Volume 88.8 fL (80.0-100.0); Monocytes % (auto) 5.2 % (0.0-12.0); Neutrophils # (auto) 14.1 10 ^3/uL (1.6-8.6); Neutrophils % (auto) 89.3 % (37.0-80.0); Platelet Count (auto) 632 10^3/uL (140-450); Red Blood Cells 4.18 10^6/uL (4.5-5.90); White Blood Cell 15.8 10^3/uL (4.4-10.8)
[2020-04-15 08:00] VITALS: BP 131/83
[2020-04-15] MEDS ORDERED: IOHEXOL 300 MG/ML 100ML BOTTLE IJ ONE (08:01)
[2020-04-15] MEDS: PANTOPRAZOLE 40 MG/10 ML VIAL INJ IV SCH ×2 (08:20→23:08)
[2020-04-15] MEDS: amLODIPine BESYLATE 5 MG TAB PO SCH (08:21)
[2020-04-15 09:00] VITALS: BP 131/83
[2020-04-15 10:15] LABS: Monocytes # (auto) 0.9 10 ^3/uL (0-1.3)
[2020-04-15 10:16] LABS: Basophils # (auto) 0 10 ^3/uL (0-0.2); Basophils % (auto) 0.2 % (0.0-2.0); Eosinophils # (auto) 0.1 10 ^3/uL (0-0.8); Eosinophils % (auto) 0.5 % (0.0-7.0); Hematocrit 36.3 % (41.0-53.0); Lymphocytes # (auto) 0.7 10 ^3/uL (0.4-5.4); Lymphocytes % (auto) 4.2 % (10.0-50.0); Mean Corpuscular Hemoglobin 29.3 pg (28.0-32.0); Mean Corpuscular Hgb Conc. 33.1 g/dL (32.0-36.0); Mean Corpuscular Volume 88.5 fL (80.0-100.0); Monocytes % (auto) 5.4 % (0.0-12.0); Neutrophils # (auto) 14.2 10 ^3/uL (1.6-8.6); Neutrophils % (auto) 89.7 % (37.0-80.0); Platelet Count (auto) 652 10^3/uL (140-450); Red Cell Distribution Width 13.4 % (11.8-14.3); White Blood Cell 15.9 10^3/uL (4.4-10.8)
[2020-04-15 10:29] LABS: INR 1.27 (0.9-1.15)
[2020-04-15 13:00] VITALS: BP 139/78
[2020-04-15] MEDS ORDERED: IODIXANOL 320MG/ML 100ML BTL IV ONE (13:06)
[2020-04-15] MEDS ORDERED: LIDOCAINE 2%HCL (LOCAL ANESTH.) INJ 20ML MDV ONE (13:07)
[2020-04-15] MEDS ORDERED: fentaNYL CITRATE 100 MCG/2 ML VL ONE (13:10)
[2020-04-15] MEDS ORDERED: MIDAZOLAM HCL 1MG/1ML-2 ML VIAL ONE (13:11)
[2020-04-15] MEDS ORDERED: diphenhdrAMINE HCL 50 MG/1 ML VL ONE (14:51)
[2020-04-15] MEDS ORDERED: IOHEXOL 350 MG/ML 100ML IJ ONE ×2 (15:15→16:09)
[2020-04-15] MEDS ORDERED: HYDROmorphone HCL 2 MG/ML VL ONE (15:25)
[2020-04-15] MEDS ORDERED: ONDANSETRON HCL 4 MG/2 ML VIAL ONE (16:12)
[2020-04-15 22:00] VITALS: BP 107/61
[2020-04-15] MEDS: ONDANSETRON HCL 4 MG/2 ML VIAL IV PRN (23:08)
[2020-04-16] MEDS: PIPERACILLIN-TAZOB 3.375GM 100 ML IV SCH ×4 (00:08→21:28)
[2020-04-16] MEDS: HYDROmorphone HCL 2 MG/ML VL IV PRN ×5 (01:02→18:52)
[2020-04-16] MEDS: LACTATED RINGER'S 1,000 ML IV SCH ×5 (02:15→20:29)
[2020-04-16 05:00] VITALS: BP 99/66
[2020-04-16] MEDS: SUCRALFATE 1 GM/10 ML ORAL SUSP PO SCH (06:34)
[2020-04-16 08:56] VITALS: BP 98/66
[2020-04-16] MEDS ORDERED: THIAMINE HCL 100 MG TAB PO SCH (10:00)
[2020-04-16] MEDS ORDERED: FOLIC ACID 1 MG TAB PO SCH (10:00)
[2020-04-16] MEDS: ONDANSETRON HCL 4 MG/2 ML VIAL IV PRN ×3 (11:01→20:19)
[2020-04-16] MEDS ORDERED: PANTOPRAZOLE 40 MG/10 ML VIAL INJ IV ONE (11:15)
[2020-04-16] MEDS ORDERED: TPN PER PHARMACY 0 ML IV SCH (11:15)
[2020-04-16 12:15] LABS: Magnesium 2.1 mg/dL (1.6-2.6); Potassium 4.2 mmol/L (3.5-5.1)
[2020-04-16 12:22] LABS: Albumin 2.1 g/dL (3.4-5.0); BUN/Creatinine Ratio 9.3; Bilirubin, Total 1.7 mg/dL (0.2-1.0); Calcium 8.4 mg/dL (8.5-10.1); Phosphorus 5.4 mg/dL (2.5-4.90); Total Protein 6.4 g/dL (6.4-8.2)
[2020-04-16 13:00] VITALS: BP 109/71
[2020-04-16] MEDS ORDERED: LIDOCAINE 1% (LOCAL ANESTH.) PF 5ml SDV ID ONE (15:15)
[2020-04-16 17:00] VITALS: BP 99/66
[2020-04-16 20:00] VITALS: BP 122/77
[2020-04-16] MEDS ORDERED: PPN PER PHARMACY IV NR ×7 (20:00)
[2020-04-16] MEDS: SODIUM CHLOR 0.9% PF (SALINE LOCK) 10ML VIAL/SYR IV SCH (21:28)
[2020-04-16 22:00] VITALS: BP 122/77
[2020-04-16] MEDS: InsuLIN REG 1unit/0.01ml Soln (100units/ml) SC SCH (23:32)
[2020-04-16] MEDS: ACCU-CHEK COMFORT CURVE STRIP VI SCH (23:32)
[2020-04-17] MEDS ORDERED: DEXTROSE (50%) 50ML SYRG IV SCH
[2020-04-17] MEDS: HYDROmorphone HCL 2 MG/ML VL IV PRN ×5 (00:15→19:53)
[2020-04-17] MEDS: ONDANSETRON HCL 4 MG/2 ML VIAL IV PRN ×4 (00:22→18:27)
[2020-04-17] MEDS: PIPERACILLIN-TAZOB 3.375GM 100 ML IV SCH ×4 (03:24→21:20)
[2020-04-17 05:00] VITALS: BP 123/74
[2020-04-17] MEDS: ACCU-CHEK COMFORT CURVE STRIP VI SCH ×3 (05:43→18:26)
[2020-04-17] MEDS: InsuLIN REG 1unit/0.01ml Soln (100units/ml) SC SCH ×3 (05:48→19:30)
[2020-04-17 06:15] LABS: Potassium 3.4 mmol/L (3.5-5.1)
[2020-04-17 06:26] LABS: Albumin 1.9 g/dL (3.4-5.0); BUN/Creatinine Ratio 12.8; Calcium 8.1 mg/dL (8.5-10.1); Magnesium 2.4 mg/dL (1.6-2.6); Total Protein 6.1 g/dL (6.4-8.2)
[2020-04-17] MEDS: LACTATED RINGER'S 1,000 ML IV SCH ×2 (07:58→20:04)
[2020-04-17 09:00] VITALS: BP 102/54
[2020-04-17] MEDS: SODIUM CHLOR 0.9% PF (SALINE LOCK) 10ML VIAL/SYR IV SCH ×2 (10:02→21:23)
[2020-04-17] MEDS: PANTOPRAZOLE 40 MG/10 ML VIAL INJ IV SCH (10:02)
[2020-04-17] MEDS: POTASSIUM CHL 20MEQ/100ML 100 ML IV SCH ×2 (10:02→13:30)
[2020-04-17] MEDS ORDERED: LACTATED RINGER'S 1,000 ML IV SCH (11:00)
[2020-04-17 13:00] VITALS: BP 116/72
[2020-04-17 16:36] VITALS: BP 121/78
[2020-04-17] MEDS ORDERED: TPN PER PHARMACY IV NR ×9 (20:00)
[2020-04-17 21:49] VITALS: BP 139/79
[2020-04-18] MEDS: ACCU-CHEK COMFORT CURVE STRIP VI SCH ×4 (00:07→17:40)
[2020-04-18] MEDS: InsuLIN REG 1unit/0.01ml Soln (100units/ml) SC SCH ×4 (00:09→17:40)
[2020-04-18] MEDS: PIPERACILLIN-TAZOB 3.375GM 100 ML IV SCH ×4 (03:24→21:56)
[2020-04-18] MEDS: ONDANSETRON HCL 4 MG/2 ML VIAL IV PRN ×4 (03:34→20:52)
[2020-04-18] MEDS: HYDROmorphone HCL 2 MG/ML VL IV PRN ×4 (03:34→20:52)
[2020-04-18 05:00] VITALS: BP 127/77
[2020-04-18 07:52] LABS: Basophils # (auto) 0.1 10 ^3/uL (0-0.2); Basophils % (auto) 0.4 % (0.0-2.0); Eosinophils # (auto) 0 10 ^3/uL (0-0.8); Hemoglobin 8.8 g/dL (13.5-17.5); Lymphocytes # (auto) 0.6 10 ^3/uL (0.4-5.4); Monocytes # (auto) 0.8 10 ^3/uL (0-1.3); Nucleated Red Blood Cells % 0.1 %
[2020-04-18 07:56] LABS: Eosinophils % (auto) 0.3 % (0.0-7.0); Hematocrit 26.1 % (41.0-53.0); Mean Corpuscular Hemoglobin 29.9 pg (28.0-32.0); Mean Corpuscular Hgb Conc. 33.7 g/dL (32.0-36.0); Mean Corpuscular Volume 88.7 fL (80.0-100.0); Monocytes % (auto) 5.3 % (0.0-12.0); Neutrophils # (auto) 13.6 10 ^3/uL (1.6-8.6); Platelet Count (auto) 655 10^3/uL (140-450); Red Blood Cells 2.94 10^6/uL (4.5-5.90); Red Cell Distribution Width 13.7 % (11.8-14.3); White Blood Cell 15.1 10^3/uL (4.4-10.8)
[2020-04-18 08:06] LABS: Amylase 148 U/L (25-115); Lipase 279 U/L (73-393)
[2020-04-18 08:10] LABS: Potassium 3.6 mmol/L (3.5-5.1)
[2020-04-18 08:19] LABS: Albumin 1.9 g/dL (3.4-5.0); BUN/Creatinine Ratio 16.4; Bilirubin, Total 0.8 mg/dL (0.2-1.0); Calcium 8.2 mg/dL (8.5-10.1); Magnesium 2.8 mg/dL (1.6-2.6); Phosphorus 2.8 mg/dL (2.5-4.90); Total Protein 6.3 g/dL (6.4-8.2)
[2020-04-18] MEDS: PANTOPRAZOLE 40 MG/10 ML VIAL INJ IV SCH (08:33)
[2020-04-18] MEDS: SODIUM CHLOR 0.9% PF (SALINE LOCK) 10ML VIAL/SYR IV SCH ×2 (08:33→21:56)
[2020-04-18 09:06] VITALS: BP 123/66
[2020-04-18] MEDS: LACTATED RINGER'S 1,000 ML IV SCH (12:40)
[2020-04-18 12:59] VITALS: BP 127/74
[2020-04-18 17:13] VITALS: BP 136/78
[2020-04-18 20:00] VITALS: BP 117/81
[2020-04-18] MEDS ORDERED: TPN PER PHARMACY IV NR ×8 (20:00)
[2020-04-18 22:00] VITALS: BP 117/81
[2020-04-19] MEDS: ACCU-CHEK COMFORT CURVE STRIP VI SCH ×4 (00:16→17:32)
[2020-04-19] MEDS: InsuLIN REG 1unit/0.01ml Soln (100units/ml) SC SCH ×4 (00:17→17:33)
[2020-04-19] MEDS: PIPERACILLIN-TAZOB 3.375GM 100 ML IV SCH ×4 (03:43→21:30)
[2020-04-19] MEDS: HYDROmorphone HCL 2 MG/ML VL IV PRN ×5 (03:44→21:31)
[2020-04-19] MEDS: ONDANSETRON HCL 4 MG/2 ML VIAL IV PRN ×5 (03:44→21:31)
[2020-04-19 05:43] VITALS: BP 130/75
[2020-04-19] MEDS: LACTATED RINGER'S 1,000 ML IV SCH ×2 (06:16→21:30)
[2020-04-19 07:18] LABS: Albumin 1.8 g/dL (3.4-5.0); Calcium 8.3 mg/dL (8.5-10.1); Potassium 3.8 mmol/L (3.5-5.1)
[2020-04-19 07:24] LABS: BUN/Creatinine Ratio 14.5; Magnesium 2.6 mg/dL (1.6-2.6); Phosphorus 3.1 mg/dL (2.5-4.90); Total Protein 6.2 g/dL (6.4-8.2)
[2020-04-19] MEDS: PANTOPRAZOLE 40 MG/10 ML VIAL INJ IV SCH (08:46)
[2020-04-19] MEDS: SODIUM CHLOR 0.9% PF (SALINE LOCK) 10ML VIAL/SYR IV SCH ×2 (08:46→21:30)
[2020-04-19 09:00] VITALS: BP 136/80
[2020-04-19 09:00] LABS: Basophils # (auto) 0.1 10 ^3/uL (0-0.2); Eosinophils # (auto) 0.1 10 ^3/uL (0-0.8); Hemoglobin 8.3 g/dL (13.5-17.5); White Blood Cell 12.1 10^3/uL (4.4-10.8)
[2020-04-19 09:03] LABS: Basophils % (auto) 0.6 % (0.0-2.0); Eosinophils % (auto) 0.4 % (0.0-7.0); Hematocrit 25.7 % (41.0-53.0); Lymphocytes # (auto) 0.5 10 ^3/uL (0.4-5.4); Lymphocytes % (auto) 4.5 % (10.0-50.0); Mean Corpuscular Hgb Conc. 32.2 g/dL (32.0-36.0); Mean Corpuscular Volume 89.8 fL (80.0-100.0); Monocytes # (auto) 0.8 10 ^3/uL (0-1.3); Monocytes % (auto) 6.2 % (0.0-12.0); Neutrophils # (auto) 10.7 10 ^3/uL (1.6-8.6); Neutrophils % (auto) 88.3 % (37.0-80.0); Platelet Count (auto) 615 10^3/uL (140-450); Red Blood Cells 2.86 10^6/uL (4.5-5.90)
[2020-04-19 13:00] VITALS: BP 117/74
[2020-04-19 17:00] VITALS: BP 140/85
[2020-04-19 20:00] VITALS: BP 142/81
[2020-04-19] MEDS ORDERED: TPN PER PHARMACY IV NR ×17 (20:00)
[2020-04-19 22:00] VITALS: BP 142/81
[2020-04-20] MEDS: ACCU-CHEK COMFORT CURVE STRIP VI SCH ×4 (00:25→17:37)
[2020-04-20] MEDS: InsuLIN REG 1unit/0.01ml Soln (100units/ml) SC SCH ×4 (00:27→17:38)
[2020-04-20] MEDS: ONDANSETRON HCL 4 MG/2 ML VIAL IV PRN ×4 (03:02→21:52)
[2020-04-20] MEDS: HYDROmorphone HCL 2 MG/ML VL IV PRN ×5 (03:02→21:52)
[2020-04-20] MEDS: PIPERACILLIN-TAZOB 3.375GM 100 ML IV SCH ×4 (03:23→21:51)
[2020-04-20 05:00] VITALS: BP 129/82
[2020-04-20 06:58] LABS: Basophils # (auto) 0.1 10 ^3/uL (0-0.2); Eosinophils # (auto) 0.1 10 ^3/uL (0-0.8); Hemoglobin 9.2 g/dL (13.5-17.5); Lymphocytes # (auto) 0.6 10 ^3/uL (0.4-5.4)
[2020-04-20 07:01] LABS: Basophils % (auto) 0.9 % (0.0-2.0); Eosinophils % (auto) 1.1 % (0.0-7.0); Hematocrit 28.3 % (41.0-53.0); Lymphocytes % (auto) 5.6 % (10.0-50.0); Mean Corpuscular Hemoglobin 29.1 pg (28.0-32.0); Mean Corpuscular Hgb Conc. 32.5 g/dL (32.0-36.0); Mean Corpuscular Volume 89.4 fL (80.0-100.0); Monocytes # (auto) 0.7 10 ^3/uL (0-1.3); Monocytes % (auto) 6.8 % (0.0-12.0); Neutrophils # (auto) 9.4 10 ^3/uL (1.6-8.6); Neutrophils % (auto) 85.6 % (37.0-80.0); Platelet Count (auto) 629 10^3/uL (140-450); Red Blood Cells 3.16 10^6/uL (4.5-5.90); Red Cell Distribution Width 13.7 % (11.8-14.3); White Blood Cell 10.9 10^3/uL (4.4-10.8)
[2020-04-20 07:11] LABS: INR 1.13 (0.9-1.15)
[2020-04-20 07:29] LABS: Albumin 1.9 g/dL (3.4-5.0); Calcium 8.3 mg/dL (8.5-10.1); Magnesium 2.4 mg/dL (1.6-2.6)
[2020-04-20 07:32] LABS: BUN/Creatinine Ratio 17.4; Bilirubin, Total 1.1 mg/dL (0.2-1.0); Total Protein 6.4 g/dL (6.4-8.2)
[2020-04-20 09:00] VITALS: BP 140/85
[2020-04-20] MEDS: SODIUM CHLOR 0.9% PF (SALINE LOCK) 10ML VIAL/SYR IV SCH ×2 (09:20→21:51)
[2020-04-20] MEDS: PANTOPRAZOLE 40 MG/10 ML VIAL INJ IV SCH (09:20)
[2020-04-20 13:00] VITALS: BP 127/81
[2020-04-20] MEDS: LACTATED RINGER'S 1,000 ML IV SCH (14:40)
[2020-04-20 16:34] VITALS: BP 140/87
[2020-04-20 20:00] VITALS: BP 139/87
[2020-04-20] MEDS ORDERED: TPN PER PHARMACY IV NR ×10 (20:00)
[2020-04-20 22:00] VITALS: BP 139/87
[2020-04-21] MEDS: ACCU-CHEK COMFORT CURVE STRIP VI SCH ×4 (00:13→17:56)
[2020-04-21] MEDS: InsuLIN REG 1unit/0.01ml Soln (100units/ml) SC SCH ×4 (00:14→17:56)
[2020-04-21] MEDS: PIPERACILLIN-TAZOB 3.375GM 100 ML IV SCH ×4 (03:26→20:57)
[2020-04-21 05:00] VITALS: BP 123/81
[2020-04-21] MEDS: HYDROmorphone HCL 2 MG/ML VL IV PRN ×4 (06:41→20:58)
[2020-04-21] MEDS: ONDANSETRON HCL 4 MG/2 ML VIAL IV PRN ×4 (06:41→20:59)
[2020-04-21 07:15] LABS: Basophils # (auto) 0.1 10 ^3/uL (0-0.2); Eosinophils # (auto) 0.2 10 ^3/uL (0-0.8); Monocytes # (auto) 0.8 10 ^3/uL (0-1.3)
[2020-04-21 07:17] LABS: Eosinophils % (auto) 1.5 % (0.0-7.0); Hematocrit 28.2 % (41.0-53.0); Hemoglobin 9.4 g/dL (13.5-17.5); Lymphocytes # (auto) 0.6 10 ^3/uL (0.4-5.4); Lymphocytes % (auto) 5.8 % (10.0-50.0); Mean Corpuscular Hemoglobin 29.6 pg (28.0-32.0); Mean Corpuscular Hgb Conc. 33.3 g/dL (32.0-36.0); Mean Corpuscular Volume 88.9 fL (80.0-100.0); Monocytes % (auto) 7.3 % (0.0-12.0); Neutrophils # (auto) 9.1 10 ^3/uL (1.6-8.6); Neutrophils % (auto) 84.4 % (37.0-80.0); Platelet Count (auto) 620 10^3/uL (140-450); Red Blood Cells 3.17 10^6/uL (4.5-5.90); Red Cell Distribution Width 13.8 % (11.8-14.3); White Blood Cell 10.8 10^3/uL (4.4-10.8)
[2020-04-21] MEDS: LACTATED RINGER'S 1,000 ML IV SCH (07:20)
[2020-04-21 07:36] LABS: Potassium 3.6 mmol/L (3.5-5.1)
[2020-04-21 07:46] LABS: Albumin 1.8 g/dL (3.4-5.0); BUN/Creatinine Ratio 20.4; Bilirubin, Total 1.2 mg/dL (0.2-1.0); Calcium 8.3 mg/dL (8.5-10.1); Magnesium 2.2 mg/dL (1.6-2.6); Phosphorus 2.7 mg/dL (2.5-4.90); Total Protein 6.4 g/dL (6.4-8.2)
[2020-04-21 08:30] VITALS: BP 116/92
[2020-04-21 09:00] VITALS: BP 116/92
[2020-04-21] MEDS: PANTOPRAZOLE 40 MG/10 ML VIAL INJ IV SCH (09:18)
[2020-04-21] MEDS: SODIUM CHLOR 0.9% PF (SALINE LOCK) 10ML VIAL/SYR IV SCH ×2 (10:00→22:00)
[2020-04-21] MEDS ORDERED: IOHEXOL 350 MG/ML 100ML IJ ONE (10:58)
[2020-04-21] MEDS ORDERED: IOHEXOL 300 MG/ML 100ML BOTTLE IJ ONE (16:12)
[2020-04-21 17:00] VITALS: BP 123/86
[2020-04-21 20:00] VITALS: BP 199/84
[2020-04-21] MEDS ORDERED: TPN PER PHARMACY IV NR ×9 (20:00)
[2020-04-22] MEDS: LACTATED RINGER'S 1,000 ML IV SCH ×2 (00:23→16:36)
[2020-04-22] MEDS: ONDANSETRON HCL 4 MG/2 ML VIAL IV PRN ×4 (00:43→14:18)
[2020-04-22] MEDS: HYDROmorphone HCL 2 MG/ML VL IV PRN ×6 (00:43→22:25)
[2020-04-22] MEDS: PIPERACILLIN-TAZOB 3.375GM 100 ML IV SCH ×4 (03:30→21:40)
[2020-04-22 05:00] VITALS: BP 109/72
[2020-04-22] MEDS: ACCU-CHEK COMFORT CURVE STRIP VI SCH ×4 (05:13→18:17)
[2020-04-22] MEDS: InsuLIN REG 1unit/0.01ml Soln (100units/ml) SC SCH ×4 (05:14→18:18)
[2020-04-22 08:11] LABS: Basophils # (auto) 0.2 10 ^3/uL (0-0.2); Basophils % (auto) 1.9 % (0.0-2.0); Eosinophils # (auto) 0.2 10 ^3/uL (0-0.8); Eosinophils % (auto) 2.3 % (0.0-7.0); Lymphocytes # (auto) 0.7 10 ^3/uL (0.4-5.4); Monocytes # (auto) 0.8 10 ^3/uL (0-1.3); Red Blood Cells 3.28 10^6/uL (4.5-5.90); Red Cell Distribution Width 13.7 % (11.8-14.3)
[2020-04-22 08:14] LABS: Hematocrit 28.9 % (41.0-53.0); Hemoglobin 9.8 g/dL (13.5-17.5); Lymphocytes % (auto) 7.4 % (10.0-50.0); Mean Corpuscular Hemoglobin 29.8 pg (28.0-32.0); Mean Corpuscular Hgb Conc. 33.9 g/dL (32.0-36.0); Mean Corpuscular Volume 88.1 fL (80.0-100.0); Monocytes % (auto) 7.5 % (0.0-12.0); Neutrophils # (auto) 8.1 10 ^3/uL (1.6-8.6); Neutrophils % (auto) 80.9 % (37.0-80.0); Platelet Count (auto) 603 10^3/uL (140-450); White Blood Cell 10.1 10^3/uL (4.4-10.8)
[2020-04-22 08:29] LABS: Potassium 3.6 mmol/L (3.5-5.1)
[2020-04-22 08:42] LABS: Albumin 1.9 g/dL (3.4-5.0); BUN/Creatinine Ratio 17.8; Calcium 8.3 mg/dL (8.5-10.1); Magnesium 2.2 mg/dL (1.6-2.6); Phosphorus 2.9 mg/dL (2.5-4.90); Total Protein 6.4 g/dL (6.4-8.2)
[2020-04-22 09:00] VITALS: BP 135/70
[2020-04-22] MEDS: PANTOPRAZOLE 40 MG/10 ML VIAL INJ IV SCH (09:23)
[2020-04-22] MEDS: SODIUM CHLOR 0.9% PF (SALINE LOCK) 10ML VIAL/SYR IV SCH ×2 (09:24→22:25)
[2020-04-22] MEDS ORDERED: VANCOMYCIN PER PHARMACY 0 MG IV SCH (11:45)
[2020-04-22 13:00] VITALS: BP 113/89
[2020-04-22] MEDS ORDERED: VANCOMYCIN 1GM/250ML 250 ML IV ONE (13:00)
[2020-04-22 17:00] VITALS: BP 126/81
[2020-04-22 20:34] VITALS: BP 126/81
[2020-04-22 21:00] VITALS: BP 121/79
[2020-04-22] MEDS: TPN PER PHARMACY IV NR ×10 (21:00)
[2020-04-22] MEDS: VANCOMYCIN 1GM/250ML 250 ML IV SCH (23:38)
[2020-04-23] MEDS: HYDROmorphone HCL 2 MG/ML VL IV PRN ×5 (02:42→19:58)
[2020-04-23] MEDS: PIPERACILLIN-TAZOB 3.375GM 100 ML IV SCH ×4 (04:02→23:21)
[2020-04-23 05:00] VITALS: BP 121/76
[2020-04-23] MEDS: ACCU-CHEK COMFORT CURVE STRIP VI SCH ×4 (06:19→18:49)
[2020-04-23] MEDS: InsuLIN REG 1unit/0.01ml Soln (100units/ml) SC SCH ×4 (06:29→18:52)
[2020-04-23] MEDS ORDERED: LIDOCAINE 2%HCL (LOCAL ANESTH.) INJ 20ML MDV ONE (06:43)
[2020-04-23 07:54] LABS: Hematocrit 27.7 % (41.0-53.0); Lymphocytes # (auto) 0.6 10 ^3/uL (0.4-5.4); Mean Corpuscular Hemoglobin 28.9 pg (28.0-32.0); Monocytes # (auto) 0.8 10 ^3/uL (0-1.3); Red Cell Distribution Width 13.9 % (11.8-14.3); White Blood Cell 8.9 10^3/uL (4.4-10.8)
[2020-04-23 07:55] LABS: Basophils # (auto) 0.2 10 ^3/uL (0-0.2); Basophils % (auto) 1.8 % (0.0-2.0); Eosinophils # (auto) 0.2 10 ^3/uL (0-0.8); Eosinophils % (auto) 2.8 % (0.0-7.0); Lymphocytes % (auto) 6.9 % (10.0-50.0); Mean Corpuscular Hgb Conc. 32.5 g/dL (32.0-36.0); Mean Corpuscular Volume 88.9 fL (80.0-100.0); Neutrophils % (auto) 79.5 % (37.0-80.0); Platelet Count (auto) 576 10^3/uL (140-450); Red Blood Cells 3.12 10^6/uL (4.5-5.90)
[2020-04-23 08:09] LABS: Potassium 3.5 mmol/L (3.5-5.1)
[2020-04-23 08:16] LABS: Albumin 1.8 g/dL (3.4-5.0); Bilirubin, Total 0.8 mg/dL (0.2-1.0); Calcium 8.2 mg/dL (8.5-10.1); Total Protein 6.2 g/dL (6.4-8.2)
[2020-04-23 09:00] VITALS: BP 126/71
[2020-04-23] MEDS ORDERED: MIDAZOLAM HCL 1MG/1ML-2 ML VIAL IV ONE (09:00)
[2020-04-23] MEDS ORDERED: fentaNYL CITRATE 100 MCG/2 ML VL IV ONE (09:00)
[2020-04-23] MEDS ORDERED: POTASSIUM CHL 20MEQ/100ML 100 ML IV ONE (10:00)
[2020-04-23] MEDS: VANCOMYCIN 1GM/250ML 250 ML IV SCH ×2 (10:05→20:03)
[2020-04-23] MEDS: LACTATED RINGER'S 1,000 ML IV SCH (10:05)
[2020-04-23] MEDS: SODIUM CHLOR 0.9% PF (SALINE LOCK) 10ML VIAL/SYR IV SCH ×2 (11:33→23:21)
[2020-04-23] MEDS: PANTOPRAZOLE 40 MG/10 ML VIAL INJ IV SCH (11:33)
[2020-04-23 13:00] VITALS: BP 127/73
[2020-04-23] MEDS: ONDANSETRON HCL 4 MG/2 ML VIAL IV PRN (15:40)
[2020-04-23 17:00] VITALS: BP 131/86
[2020-04-23] MEDS: TPN PER PHARMACY IV NR ×20 (19:58→20:02)
[2020-04-23 23:51] VITALS: BP 123/81
[2020-04-24] MEDS: HYDROmorphone HCL 2 MG/ML VL IV PRN ×6 (00:07→23:14)
[2020-04-24] MEDS: LACTATED RINGER'S 1,000 ML IV SCH ×2 (02:00→18:52)
[2020-04-24] MEDS: VANCOMYCIN 1GM/250ML 250 ML IV SCH ×3 (04:09→19:50)
[2020-04-24 05:20] VITALS: BP 139/86
[2020-04-24] MEDS: PIPERACILLIN-TAZOB 3.375GM 100 ML IV SCH ×4 (06:00→21:33)
[2020-04-24] MEDS: ACCU-CHEK COMFORT CURVE STRIP VI SCH ×5 (06:22→23:14)
[2020-04-24] MEDS: InsuLIN REG 1unit/0.01ml Soln (100units/ml) SC SCH ×5 (06:23→23:16)
[2020-04-24 06:46] LABS: Hematocrit 30.2 % (41.0-53.0); Hemoglobin 9.7 g/dL (13.5-17.5)
[2020-04-24 07:03] LABS: Albumin 1.9 g/dL (3.4-5.0); Calcium 8.3 mg/dL (8.5-10.1); Magnesium 2.2 mg/dL (1.6-2.6); Potassium 3.9 mmol/L (3.5-5.1)
[2020-04-24 07:07] LABS: BUN/Creatinine Ratio 15.6; Bilirubin, Total 0.8 mg/dL (0.2-1.0); Phosphorus 3.2 mg/dL (2.5-4.90); Total Protein 6.2 g/dL (6.4-8.2)
[2020-04-24 07:15] LABS: Pre Albumin 17.8 mg/dL (20.0-40.0)
[2020-04-24] MEDS: ONDANSETRON HCL 4 MG/2 ML VIAL IV PRN (08:38)
[2020-04-24 09:00] VITALS: BP 118/81
[2020-04-24] MEDS: PANTOPRAZOLE 40 MG/10 ML VIAL INJ IV SCH (10:47)
[2020-04-24] MEDS: SODIUM CHLOR 0.9% PF (SALINE LOCK) 10ML VIAL/SYR IV SCH ×2 (10:47→21:33)
[2020-04-24 13:00] VITALS: BP 124/76
[2020-04-24 17:00] VITALS: BP 128/81
[2020-04-24] MEDS: TPN PER PHARMACY IV NR ×10 (19:49)
[2020-04-24] MEDS ORDERED: TPN PER PHARMACY IV NR ×10 (20:00)
[2020-04-24 22:00] VITALS: BP 124/80
[2020-04-25] VITALS (13 sets, daily range): BP systolic 73–137; BP diastolic 46–87
[2020-04-25] MEDS: PIPERACILLIN-TAZOB 3.375GM 100 ML IV SCH ×4 (02:30→21:56)
[2020-04-25] MEDS: HYDROmorphone HCL 2 MG/ML VL IV PRN ×5 (03:27→21:59)
[2020-04-25 03:46] LABS: Albumin 1.9 g/dL (3.4-5.0); BUN/Creatinine Ratio 15.2; Bilirubin, Total 0.9 mg/dL (0.2-1.0); Calcium 8.1 mg/dL (8.5-10.1); Magnesium 2.2 mg/dL (1.6-2.6); Phosphorus 3.5 mg/dL (2.5-4.90); Total Protein 5.7 g/dL (6.4-8.2)
[2020-04-25] MEDS: VANCOMYCIN 1GM/250ML 250 ML IV SCH ×3 (04:44→19:57)
[2020-04-25] MEDS: ACCU-CHEK COMFORT CURVE STRIP VI SCH ×4 (05:35→23:34)
[2020-04-25] MEDS: InsuLIN REG 1unit/0.01ml Soln (100units/ml) SC SCH ×4 (05:37→23:35)
[2020-04-25] MEDS: PANTOPRAZOLE 40 MG/10 ML VIAL INJ IV SCH (09:28)
[2020-04-25] MEDS: SODIUM CHLOR 0.9% PF (SALINE LOCK) 10ML VIAL/SYR IV SCH ×2 (09:28→21:56)
[2020-04-25] MEDS ORDERED: LIDOCAINE 2%HCL (LOCAL ANESTH.) INJ 20ML MDV ONE (10:58)
[2020-04-25] MEDS ORDERED: MIDAZOLAM HCL 1MG/1ML-2 ML VIAL IV ONE (11:00)
[2020-04-25] MEDS ORDERED: fentaNYL CITRATE 100 MCG/2 ML VL IV ONE (11:00)
[2020-04-25] MEDS: LACTATED RINGER'S 1,000 ML IV SCH (11:34)
[2020-04-25] MEDS ORDERED: SODIUM CHLORIDE 0.9% 500 ML IV ONE (11:35)
[2020-04-25] MEDS ORDERED: SODIUM CHLORIDE 0.9% 1,000 ML IV SCH (12:15)
[2020-04-25] MEDS: ONDANSETRON HCL 4 MG/2 ML VIAL IV PRN (19:57)
[2020-04-25] MEDS ORDERED: TPN PER PHARMACY IV NR ×10 (20:00)
[2020-04-26] MEDS: HYDROmorphone HCL 2 MG/ML VL IV PRN ×5 (02:17→19:50)
[2020-04-26] MEDS: PIPERACILLIN-TAZOB 3.375GM 100 ML IV SCH ×4 (02:35→21:42)
[2020-04-26] MEDS: LACTATED RINGER'S 1,000 ML IV SCH ×2 (04:00→20:40)
[2020-04-26] MEDS: VANCOMYCIN 1GM/250ML 250 ML IV SCH ×3 (04:35→20:01)
[2020-04-26 05:00] VITALS: BP 122/61
[2020-04-26] MEDS: ACCU-CHEK COMFORT CURVE STRIP VI SCH ×4 (06:18→23:20)
[2020-04-26] MEDS: InsuLIN REG 1unit/0.01ml Soln (100units/ml) SC SCH ×4 (06:24→23:26)
[2020-04-26 08:27] LABS: Albumin 1.8 g/dL (3.4-5.0); Calcium 8.1 mg/dL (8.5-10.1); Magnesium 2.3 mg/dL (1.6-2.6); Potassium 3.6 mmol/L (3.5-5.1)
[2020-04-26 08:30] LABS: BUN/Creatinine Ratio 18.3; Phosphorus 3.1 mg/dL (2.5-4.90); Total Protein 6.2 g/dL (6.4-8.2)
[2020-04-26 09:00] VITALS: BP 98/68
[2020-04-26] MEDS: PANTOPRAZOLE 40 MG/10 ML VIAL INJ IV SCH (09:16)
[2020-04-26] MEDS: SODIUM CHLOR 0.9% PF (SALINE LOCK) 10ML VIAL/SYR IV SCH ×2 (09:16→21:42)
[2020-04-26] MEDS: ONDANSETRON HCL 4 MG/2 ML VIAL IV PRN ×2 (11:03→15:15)
[2020-04-26 13:00] VITALS: BP 106/70
[2020-04-26 17:00] VITALS: BP 116/77
[2020-04-26] MEDS ORDERED: TPN PER PHARMACY IV NR ×10 (20:00)
[2020-04-26 21:00] VITALS: BP 96/59
[2020-04-27] MEDS: HYDROmorphone HCL 2 MG/ML VL IV PRN ×6 (00:03→21:07)
[2020-04-27] MEDS: PIPERACILLIN-TAZOB 3.375GM 100 ML IV SCH ×4 (02:46→21:58)
[2020-04-27] MEDS: VANCOMYCIN 1GM/250ML 250 ML IV SCH ×3 (04:28→20:29)
[2020-04-27] MEDS: ONDANSETRON HCL 4 MG/2 ML VIAL IV PRN ×5 (04:29→21:07)
[2020-04-27 05:00] VITALS: BP 100/69
[2020-04-27] MEDS: ACCU-CHEK COMFORT CURVE STRIP VI SCH ×3 (05:18→17:08)
[2020-04-27 05:31] LABS: Basophils # (auto) 0.1 10 ^3/uL (0-0.2); Basophils % (auto) 0.6 % (0.0-2.0); Eosinophils # (auto) 0.1 10 ^3/uL (0-0.8); Eosinophils % (auto) 0.6 % (0.0-7.0); Hematocrit 27.2 % (41.0-53.0); Lymphocytes # (auto) 0.7 10 ^3/uL (0.4-5.4); Lymphocytes % (auto) 3.9 % (10.0-50.0); Mean Corpuscular Hemoglobin 28.9 pg (28.0-32.0); Mean Corpuscular Volume 87.6 fL (80.0-100.0); Monocytes # (auto) 1.1 10 ^3/uL (0-1.3); Neutrophils # (auto) 15.7 10 ^3/uL (1.6-8.6); Neutrophils % (auto) 88.9 % (37.0-80.0); Nucleated Red Blood Cells % 0.1 %; Platelet Count (auto) 440 10^3/uL (140-450); Red Cell Distribution Width 13.7 % (11.8-14.3); White Blood Cell 17.6 10^3/uL (4.4-10.8)
[2020-04-27 05:48] LABS: Albumin 1.7 g/dL (3.4-5.0); Magnesium 2.3 mg/dL (1.6-2.6); Potassium 3.7 mmol/L (3.5-5.1)
[2020-04-27 05:51] LABS: BUN/Creatinine Ratio 15.5; Bilirubin, Total 0.9 mg/dL (0.2-1.0); Phosphorus 2.9 mg/dL (2.5-4.90); Total Protein 5.9 g/dL (6.4-8.2)
[2020-04-27] MEDS: InsuLIN REG 1unit/0.01ml Soln (100units/ml) SC SCH ×3 (06:01→18:27)
[2020-04-27] MEDS: PANTOPRAZOLE 40 MG/10 ML VIAL INJ IV SCH (08:55)
[2020-04-27 09:00] VITALS: BP 105/67
[2020-04-27] MEDS: SODIUM CHLOR 0.9% PF (SALINE LOCK) 10ML VIAL/SYR IV SCH ×2 (09:02→22:52)
[2020-04-27 13:00] VITALS: BP 109/71
[2020-04-27] MEDS: LACTATED RINGER'S 1,000 ML IV SCH (13:20)
[2020-04-27 17:00] VITALS: BP 128/82
[2020-04-27] MEDS ORDERED: TPN PER PHARMACY IV NR ×10 (20:00)
[2020-04-27 22:42] VITALS: BP 114/67
[2020-04-28] MEDS: ACCU-CHEK COMFORT CURVE STRIP VI SCH ×4 (00:04→17:43)
[2020-04-28] MEDS: InsuLIN REG 1unit/0.01ml Soln (100units/ml) SC SCH ×4 (00:06→17:44)
[2020-04-28] MEDS: HYDROmorphone HCL 2 MG/ML VL IV PRN ×6 (01:11→22:55)
[2020-04-28] MEDS: ONDANSETRON HCL 4 MG/2 ML VIAL IV PRN ×2 (01:12→05:26)
[2020-04-28 03:15] LABS: Basophils # (auto) 0.1 10 ^3/uL (0-0.2); Eosinophils # (auto) 0.3 10 ^3/uL (0-0.8); Lymphocytes # (auto) 0.7 10 ^3/uL (0.4-5.4); Monocytes # (auto) 1.1 10 ^3/uL (0-1.3)
[2020-04-28 03:17] LABS: Basophils % (auto) 0.8 % (0.0-2.0); Eosinophils % (auto) 1.5 % (0.0-7.0); Hematocrit 27.1 % (41.0-53.0); Hemoglobin 8.9 g/dL (13.5-17.5); Lymphocytes % (auto) 4.5 % (10.0-50.0); Mean Corpuscular Hemoglobin 28.9 pg (28.0-32.0); Mean Corpuscular Hgb Conc. 32.8 g/dL (32.0-36.0); Mean Corpuscular Volume 88.1 fL (80.0-100.0); Monocytes % (auto) 6.6 % (0.0-12.0); Neutrophils # (auto) 14.4 10 ^3/uL (1.6-8.6); Neutrophils % (auto) 86.6 % (37.0-80.0); Platelet Count (auto) 462 10^3/uL (140-450); Red Blood Cells 3.07 10^6/uL (4.5-5.90); Red Cell Distribution Width 13.6 % (11.8-14.3); White Blood Cell 16.6 10^3/uL (4.4-10.8)
[2020-04-28] MEDS: VANCOMYCIN 1GM/250ML 250 ML IV SCH (04:00)
[2020-04-28] MEDS: PIPERACILLIN-TAZOB 3.375GM 100 ML IV SCH ×4 (04:17→21:19)
[2020-04-28 04:35] LABS: Albumin 1.7 g/dL (3.4-5.0); Calcium 8.2 mg/dL (8.5-10.1); Magnesium 2.2 mg/dL (1.6-2.6); Potassium 3.9 mmol/L (3.5-5.1)
[2020-04-28 04:40] LABS: BUN/Creatinine Ratio 13.4; Bilirubin, Total 0.8 mg/dL (0.2-1.0); Phosphorus 3.1 mg/dL (2.5-4.90)
[2020-04-28 05:40] VITALS: BP 101/66
[2020-04-28] MEDS: LACTATED RINGER'S 1,000 ML IV SCH ×2 (06:00→18:30)
[2020-04-28 08:00] VITALS: BP 101/67
[2020-04-28] MEDS: PANTOPRAZOLE 40 MG/10 ML VIAL INJ IV SCH (09:31)
[2020-04-28] MEDS: SODIUM CHLOR 0.9% PF (SALINE LOCK) 10ML VIAL/SYR IV SCH ×2 (09:31→21:20)
[2020-04-28 12:00] VITALS: BP 108/66
[2020-04-28 17:21] VITALS: BP 117/77
[2020-04-28] MEDS ORDERED: TPN PER PHARMACY IV NR ×10 (20:00)
[2020-04-28 22:00] VITALS: BP 109/85
[2020-04-29] MEDS: InsuLIN REG 1unit/0.01ml Soln (100units/ml) SC SCH ×4 (00:38→18:19)
[2020-04-29] MEDS: ACCU-CHEK COMFORT CURVE STRIP VI SCH ×4 (00:39→18:09)
[2020-04-29] MEDS: HYDROmorphone HCL 2 MG/ML VL IV PRN ×5 (02:45→21:04)
[2020-04-29] MEDS: ONDANSETRON HCL 4 MG/2 ML VIAL IV PRN ×5 (02:45→21:04)
[2020-04-29] MEDS: PIPERACILLIN-TAZOB 3.375GM 100 ML IV SCH ×2 (04:18→09:00)
[2020-04-29 05:00] VITALS: BP 114/74
[2020-04-29 06:47] VITALS: BP_SYST 102
[2020-04-29 08:58] VITALS: BP 112/78
[2020-04-29] MEDS: SODIUM CHLOR 0.9% PF (SALINE LOCK) 10ML VIAL/SYR IV SCH ×2 (09:00→22:50)
[2020-04-29] MEDS: PANTOPRAZOLE 40 MG/10 ML VIAL INJ IV SCH (09:00)
[2020-04-29 09:22] LABS: Basophils # (auto) 0.1 10 ^3/uL (0-0.2); Eosinophils # (auto) 0.1 10 ^3/uL (0-0.8); Hemoglobin 9.2 g/dL (13.5-17.5); Lymphocytes # (auto) 0.9 10 ^3/uL (0.4-5.4)
[2020-04-29 09:24] LABS: Basophils % (auto) 0.3 % (0.0-2.0); Eosinophils % (auto) 0.2 % (0.0-7.0); Hematocrit 28.6 % (41.0-53.0); Lymphocytes % (auto) 3.7 % (10.0-50.0); Mean Corpuscular Hemoglobin 28.2 pg (28.0-32.0); Mean Corpuscular Hgb Conc. 32.1 g/dL (32.0-36.0); Mean Corpuscular Volume 87.9 fL (80.0-100.0); Monocytes # (auto) 0.8 10 ^3/uL (0-1.3); Monocytes % (auto) 3.3 % (0.0-12.0); Neutrophils % (auto) 92.5 % (37.0-80.0); Red Blood Cells 3.26 10^6/uL (4.5-5.90); Red Cell Distribution Width 13.8 % (11.8-14.3); White Blood Cell 23.7 10^3/uL (4.4-10.8)
[2020-04-29 09:43] LABS: Potassium 4.6 mmol/L (3.5-5.1)
[2020-04-29 09:54] LABS: Platelet Count (auto) 595 10^3/uL (140-450)
[2020-04-29 10:01] LABS: Albumin 1.6 g/dL (3.4-5.0); BUN/Creatinine Ratio 15.5; Bilirubin, Total 0.8 mg/dL (0.2-1.0); Calcium 8.7 mg/dL (8.5-10.1); Magnesium 2.3 mg/dL (1.6-2.6); Phosphorus 3.7 mg/dL (2.5-4.90); Total Protein 6.3 g/dL (6.4-8.2)
[2020-04-29] MEDS ORDERED: IOHEXOL 300 MG/ML 100ML BOTTLE IJ ONE (10:40)
[2020-04-29] MEDS: VANCOMYCIN 1GM/250ML 250 ML IV SCH (12:00)
[2020-04-29] MEDS: LACTATED RINGER'S 1,000 ML IV SCH (12:37)
[2020-04-29] MEDS: FLUCONAZOLE 200MG/100ML 100 ML IV SCH ×2 (14:00→15:00)
[2020-04-29 16:00] LABS: INR 1.24 (0.9-1.15); Partial Thromboplastin Time 28.3 sec (23.0-31.2)
[2020-04-29 17:00] VITALS: BP 111/67
[2020-04-29] MEDS: MEROPENEM 1GM IVPB 100 ML IV SCH ×2 (17:47→22:51)
[2020-04-29] MEDS: TPN PER PHARMACY IV NR ×10 (20:57)
[2020-04-29 22:00] VITALS: BP 120/77
[2020-04-30] VITALS (18 sets, daily range): BP systolic 81–134; BP diastolic 59–83
[2020-04-30] MEDS: ACCU-CHEK COMFORT CURVE STRIP VI SCH ×5 (00:52→23:27)
[2020-04-30] MEDS: InsuLIN REG 1unit/0.01ml Soln (100units/ml) SC SCH ×5 (00:53→23:33)
[2020-04-30] MEDS: HYDROmorphone HCL 2 MG/ML VL IV PRN ×4 (03:48→20:09)
[2020-04-30] MEDS: VANCOMYCIN 1GM/250ML 250 ML IV SCH ×2 (03:48→20:07)
[2020-04-30] MEDS: ONDANSETRON HCL 4 MG/2 ML VIAL IV PRN ×4 (03:48→20:09)
[2020-04-30] MEDS: MEROPENEM 1GM IVPB 100 ML IV SCH ×3 (05:55→22:46)
[2020-04-30 06:35] LABS: Basophils # (auto) 0.1 10 ^3/uL (0-0.2); Basophils % (auto) 0.7 % (0.0-2.0); Hematocrit 23.5 % (41.0-53.0); Hemoglobin 7.7 g/dL (13.5-17.5); Red Blood Cells 2.64 10^6/uL (4.5-5.90)
[2020-04-30 06:38] LABS: Eosinophils # (auto) 0.2 10 ^3/uL (0-0.8); Eosinophils % (auto) 1.2 % (0.0-7.0); Lymphocytes % (auto) 6.3 % (10.0-50.0); Mean Corpuscular Hemoglobin 29.1 pg (28.0-32.0); Mean Corpuscular Hgb Conc. 32.8 g/dL (32.0-36.0); Mean Corpuscular Volume 88.8 fL (80.0-100.0); Monocytes # (auto) 0.9 10 ^3/uL (0-1.3); Monocytes % (auto) 5.4 % (0.0-12.0); Neutrophils # (auto) 13.8 10 ^3/uL (1.6-8.6); Neutrophils % (auto) 86.4 % (37.0-80.0); Platelet Count (auto) 487 10^3/uL (140-450); Red Cell Distribution Width 13.8 % (11.8-14.3); White Blood Cell 15.9 10^3/uL (4.4-10.8)
[2020-04-30 06:53] LABS: Albumin 1.5 g/dL (3.4-5.0); Calcium 8.4 mg/dL (8.5-10.1); Magnesium 2.4 mg/dL (1.6-2.6); Potassium 4.2 mmol/L (3.5-5.1)
[2020-04-30 07:04] LABS: BUN/Creatinine Ratio 17.9; Bilirubin, Total 0.6 mg/dL (0.2-1.0); Phosphorus 2.6 mg/dL (2.5-4.90)
[2020-04-30] MEDS ORDERED: LIDOCAINE 2%HCL (LOCAL ANESTH.) INJ 20ML MDV ONE (08:57)
[2020-04-30] MEDS: fentaNYL CITRATE 100 MCG/2 ML VL IV ONE ×2 (09:30→11:20)
[2020-04-30] MEDS ORDERED: MIDAZOLAM HCL 1MG/1ML-2 ML VIAL IV ONE (09:30)
[2020-04-30] MEDS: SODIUM CHLOR 0.9% PF (SALINE LOCK) 10ML VIAL/SYR IV SCH ×2 (10:00→22:46)
[2020-04-30] MEDS: PANTOPRAZOLE 40 MG/10 ML VIAL INJ IV SCH (10:00)
[2020-04-30] MEDS: FLUCONAZOLE 200MG/100ML 100 ML IV SCH ×2 (10:00→11:00)
[2020-04-30] MEDS: LACTATED RINGER'S 1,000 ML IV SCH (10:30)
[2020-04-30] MEDS ORDERED: TPN PER PHARMACY IV NR ×10 (20:00)
[2020-04-30] MEDS: TPN PER PHARMACY IV NR ×10 (20:06)
[2020-05-01] MEDS: HYDROmorphone HCL 2 MG/ML VL IV PRN ×7 (01:15→20:37)
[2020-05-01] MEDS: ONDANSETRON HCL 4 MG/2 ML VIAL IV PRN ×5 (01:16→20:37)
[2020-05-01] MEDS: LACTATED RINGER'S 1,000 ML IV SCH ×2 (02:01→17:20)
[2020-05-01 04:55] VITALS: BP 127/86
[2020-05-01] MEDS: InsuLIN REG 1unit/0.01ml Soln (100units/ml) SC SCH ×3 (06:00→17:47)
[2020-05-01] MEDS: MEROPENEM 1GM IVPB 100 ML IV SCH ×3 (06:11→22:25)
[2020-05-01] MEDS: ACCU-CHEK COMFORT CURVE STRIP VI SCH ×3 (06:11→17:46)
[2020-05-01 06:36] LABS: Basophils # (auto) 0.2 10 ^3/uL (0-0.2); Eosinophils # (auto) 0.2 10 ^3/uL (0-0.8); Eosinophils % (auto) 1.4 % (0.0-7.0); Hematocrit 24.2 % (41.0-53.0); Hemoglobin 7.8 g/dL (13.5-17.5); Red Blood Cells 2.71 10^6/uL (4.5-5.90)
[2020-05-01 06:38] LABS: Basophils % (auto) 1.3 % (0.0-2.0); Lymphocytes # (auto) 0.9 10 ^3/uL (0.4-5.4); Lymphocytes % (auto) 6.5 % (10.0-50.0); Mean Corpuscular Hemoglobin 28.7 pg (28.0-32.0); Mean Corpuscular Hgb Conc. 32.2 g/dL (32.0-36.0); Mean Corpuscular Volume 89.2 fL (80.0-100.0); Monocytes # (auto) 0.7 10 ^3/uL (0-1.3); Monocytes % (auto) 5.6 % (0.0-12.0); Neutrophils # (auto) 11.3 10 ^3/uL (1.6-8.6); Neutrophils % (auto) 85.2 % (37.0-80.0); Platelet Count (auto) 537 10^3/uL (140-450); White Blood Cell 13.3 10^3/uL (4.4-10.8)
[2020-05-01 07:01] LABS: Potassium 4.6 mmol/L (3.5-5.1)
[2020-05-01 07:11] LABS: Albumin 1.5 g/dL (3.4-5.0); BUN/Creatinine Ratio 18.2; Bilirubin, Total 0.6 mg/dL (0.2-1.0); Calcium 8.5 mg/dL (8.5-10.1); Magnesium 2.4 mg/dL (1.6-2.6); Phosphorus 3.3 mg/dL (2.5-4.90); Total Protein 6.3 g/dL (6.4-8.2)
[2020-05-01 09:00] VITALS: BP 127/87
[2020-05-01] MEDS: FLUCONAZOLE 200MG/100ML 100 ML IV SCH (10:33)
[2020-05-01] MEDS: PANTOPRAZOLE 40 MG/10 ML VIAL INJ IV SCH (10:33)
[2020-05-01] MEDS: SODIUM CHLOR 0.9% PF (SALINE LOCK) 10ML VIAL/SYR IV SCH ×2 (10:33→22:25)
[2020-05-01] MEDS: VANCOMYCIN 1GM/250ML 250 ML IV SCH (12:42)
[2020-05-01 13:00] VITALS: BP 142/79
[2020-05-01 16:42] VITALS: BP 127/83
[2020-05-01] MEDS ORDERED: FLUCONAZOLE 200MG/100ML 100 ML IV ONE (17:00)
[2020-05-01] MEDS ORDERED: TPN PER PHARMACY IV NR ×10 (20:00)
[2020-05-01 22:00] VITALS: BP 131/88
[2020-05-02] MEDS: ACCU-CHEK COMFORT CURVE STRIP VI SCH ×4 (00:36→18:57)
[2020-05-02] MEDS: HYDROmorphone HCL 2 MG/ML VL IV PRN ×6 (00:36→22:56)
[2020-05-02] MEDS: ONDANSETRON HCL 4 MG/2 ML VIAL IV PRN ×6 (00:36→22:56)
[2020-05-02] MEDS: VANCOMYCIN 1GM/250ML 250 ML IV SCH ×2 (04:02→17:54)
[2020-05-02 04:03] LABS: Albumin 1.6 g/dL (3.4-5.0); Calcium 8.8 mg/dL (8.5-10.1); Magnesium 2.4 mg/dL (1.6-2.6); Potassium 4.7 mmol/L (3.5-5.1)
[2020-05-02 04:06] LABS: Basophils # (auto) 0.1 10 ^3/uL (0-0.2); Basophils % (auto) 1.1 % (0.0-2.0); Eosinophils # (auto) 0.2 10 ^3/uL (0-0.8); Eosinophils % (auto) 1.7 % (0.0-7.0); Hematocrit 26.3 % (41.0-53.0); Hemoglobin 8.3 g/dL (13.5-17.5); Lymphocytes # (auto) 1.2 10 ^3/uL (0.4-5.4); Lymphocytes % (auto) 9.4 % (10.0-50.0); Mean Corpuscular Hemoglobin 29.8 pg (28.0-32.0); Mean Corpuscular Hgb Conc. 31.6 g/dL (32.0-36.0); Mean Corpuscular Volume 94.2 fL (80.0-100.0); Monocytes # (auto) 0.8 10 ^3/uL (0-1.3); Monocytes % (auto) 6.5 % (0.0-12.0); Neutrophils # (auto) 10.4 10 ^3/uL (1.6-8.6); Neutrophils % (auto) 81.3 % (37.0-80.0); Nucleated Red Blood Cells % 0.1 %; Platelet Count (auto) 565 10^3/uL (140-450); Red Blood Cells 2.79 10^6/uL (4.5-5.90); Red Cell Distribution Width 14.3 % (11.8-14.3); White Blood Cell 12.7 10^3/uL (4.4-10.8)
[2020-05-02 04:11] LABS: BUN/Creatinine Ratio 18.3; Bilirubin, Total 0.5 mg/dL (0.2-1.0); Phosphorus 3.4 mg/dL (2.5-4.90); Pre Albumin 12.8 mg/dL (20.0-40.0); Total Protein 6.5 g/dL (6.4-8.2)
[2020-05-02] MEDS: MEROPENEM 1GM IVPB 100 ML IV SCH ×3 (06:09→22:03)
[2020-05-02] MEDS: InsuLIN REG 1unit/0.01ml Soln (100units/ml) SC SCH ×4 (06:12→18:56)
[2020-05-02 08:32] VITALS: BP 113/75
[2020-05-02] MEDS: SODIUM CHLOR 0.9% PF (SALINE LOCK) 10ML VIAL/SYR IV SCH ×2 (09:47→22:03)
[2020-05-02] MEDS: PANTOPRAZOLE 40 MG/10 ML VIAL INJ IV SCH (09:47)
[2020-05-02] MEDS: LACTATED RINGER'S 1,000 ML IV SCH (10:00)
[2020-05-02 12:34] VITALS: BP 120/78
[2020-05-02 16:36] VITALS: BP 136/86
[2020-05-02] MEDS: FLUCONAZOLE 200MG/100ML 100 ML IV SCH ×2 (17:55→17:56)
[2020-05-02] MEDS ORDERED: TPN PER PHARMACY IV NR ×10 (20:00)
[2020-05-02 22:15] VITALS: BP 137/90
[2020-05-03] MEDS: ACCU-CHEK COMFORT CURVE STRIP VI SCH ×5 (00:17→23:30)
[2020-05-03] MEDS: ONDANSETRON HCL 4 MG/2 ML VIAL IV PRN ×4 (03:40→21:21)
[2020-05-03] MEDS: HYDROmorphone HCL 2 MG/ML VL IV PRN ×4 (03:40→21:22)
[2020-05-03] MEDS: LACTATED RINGER'S 1,000 ML IV SCH ×2 (03:53→20:27)
[2020-05-03] MEDS: VANCOMYCIN 1GM/250ML 250 ML IV SCH ×2 (04:48→17:00)
[2020-05-03 05:10] VITALS: BP 107/68
[2020-05-03] MEDS: MEROPENEM 1GM IVPB 100 ML IV SCH ×3 (06:34→21:21)
[2020-05-03] MEDS: InsuLIN REG 1unit/0.01ml Soln (100units/ml) SC SCH ×5 (06:35→23:31)
[2020-05-03] MEDS: PANTOPRAZOLE 40 MG/10 ML VIAL INJ IV SCH (08:34)
[2020-05-03 09:00] VITALS: BP 122/78
[2020-05-03] MEDS: SODIUM CHLOR 0.9% PF (SALINE LOCK) 10ML VIAL/SYR IV SCH ×2 (09:43→21:24)
[2020-05-03 12:12] LABS: Basophils # (auto) 0.2 10 ^3/uL (0-0.2); Eosinophils # (auto) 0.2 10 ^3/uL (0-0.8); Hemoglobin 7.3 g/dL (13.5-17.5); Red Cell Distribution Width 13.9 % (11.8-14.3); White Blood Cell 17.8 10^3/uL (4.4-10.8)
[2020-05-03 12:14] LABS: Eosinophils % (auto) 0.9 % (0.0-7.0); Hematocrit 22.1 % (41.0-53.0); Lymphocytes # (auto) 1.3 10 ^3/uL (0.4-5.4); Lymphocytes % (auto) 7.1 % (10.0-50.0); Mean Corpuscular Hemoglobin 29.7 pg (28.0-32.0); Mean Corpuscular Hgb Conc. 33.1 g/dL (32.0-36.0); Mean Corpuscular Volume 89.7 fL (80.0-100.0); Monocytes # (auto) 0.9 10 ^3/uL (0-1.3); Monocytes % (auto) 5.2 % (0.0-12.0); Neutrophils # (auto) 15.3 10 ^3/uL (1.6-8.6); Neutrophils % (auto) 85.8 % (37.0-80.0); Platelet Count (auto) 524 10^3/uL (140-450); Red Blood Cells 2.46 10^6/uL (4.5-5.90)
[2020-05-03 12:19] LABS: Albumin 1.6 g/dL (3.4-5.0); Calcium 8.6 mg/dL (8.5-10.1); Magnesium 2.4 mg/dL (1.6-2.6); Potassium 4.3 mmol/L (3.5-5.1)
[2020-05-03 12:25] LABS: BUN/Creatinine Ratio 17.3; Bilirubin, Total 0.6 mg/dL (0.2-1.0); Phosphorus 3.5 mg/dL (2.5-4.90); Total Protein 6.2 g/dL (6.4-8.2)
[2020-05-03 12:30] VITALS: BP 106/75
[2020-05-03 16:47] VITALS: BP 110/71
[2020-05-03] MEDS: FLUCONAZOLE 200MG/100ML 100 ML IV SCH ×2 (17:00→19:05)
[2020-05-03] MEDS ORDERED: TPN PER PHARMACY IV NR ×11 (20:00)
[2020-05-03 22:00] VITALS: BP 119/74
[2020-05-04] VITALS (8 sets, daily range): BP systolic 97–118; BP diastolic 52–76
[2020-05-04] MEDS: ONDANSETRON HCL 4 MG/2 ML VIAL IV PRN ×5 (01:35→17:25)
[2020-05-04] MEDS: HYDROmorphone HCL 2 MG/ML VL IV PRN ×5 (01:35→17:25)
[2020-05-04] MEDS: VANCOMYCIN 1GM/250ML 250 ML IV SCH ×2 (04:41→17:24)
[2020-05-04] MEDS: ACCU-CHEK COMFORT CURVE STRIP VI SCH ×3 (05:32→19:45)
[2020-05-04] MEDS: InsuLIN REG 1unit/0.01ml Soln (100units/ml) SC SCH ×3 (05:35→18:00)
[2020-05-04] MEDS: MEROPENEM 1GM IVPB 100 ML IV SCH ×3 (05:52→22:03)
[2020-05-04 09:17] LABS: Hematocrit 21.1 % (41.0-53.0); White Blood Cell 13.6 10^3/uL (4.4-10.8)
[2020-05-04 09:19] LABS: Mean Corpuscular Hemoglobin 29.2 pg (28.0-32.0); Mean Corpuscular Hgb Conc. 33.1 g/dL (32.0-36.0); Mean Corpuscular Volume 88.3 fL (80.0-100.0); Platelet Count (auto) 505 10^3/uL (140-450); Red Blood Cells 2.38 10^6/uL (4.5-5.90); Red Cell Distribution Width 13.5 % (11.8-14.3)
[2020-05-04 09:28] LABS: Basophils % (manual) 0 (0.0-2.0); Blast Cells 0; Metamyelocytes % 0; Myelocytes % 0; Reactive Lymphocytes 0
[2020-05-04 09:41] LABS: Albumin 1.6 g/dL (3.4-5.0); Calcium 8.7 mg/dL (8.5-10.1); Magnesium 2.4 mg/dL (1.6-2.6)
[2020-05-04 09:46] LABS: BUN/Creatinine Ratio 18.9; Bilirubin, Total 0.4 mg/dL (0.2-1.0); Phosphorus 3.5 mg/dL (2.5-4.90); Total Protein 6.4 g/dL (6.4-8.2)
[2020-05-04 09:51] LABS: Band Neutrophils % (manual) 1; Eosinophils % (manual) 2 (0-7); Lymphocytes % (manual) 9 (10.0-50.0); Monocytes % (manual) 4 (0-12); Promyelocytes % 1
[2020-05-04] MEDS: PANTOPRAZOLE 40 MG/10 ML VIAL INJ IV SCH (10:10)
[2020-05-04] MEDS: SODIUM CHLOR 0.9% PF (SALINE LOCK) 10ML VIAL/SYR IV SCH ×2 (10:10→22:03)
[2020-05-04] MEDS ORDERED: LACTATED RINGER'S 1,000 ML IV SCH (11:00)
[2020-05-04] MEDS: Glucerna Carbsteady SHAKE Vanilla 8oz PO SCH ×2 (12:00→18:00)
[2020-05-04] MEDS ORDERED: diphenhdrAMINE HCL 25 MG CAP PO PRN (14:30)
[2020-05-04] MEDS ORDERED: ACETAMINOPHEN 500 MG TAB PO ONE (15:00)
[2020-05-04] MEDS ORDERED: HYDROcodone-ACET 5/325MG TAB PO PRN (15:00)
[2020-05-04] MEDS: FLUCONAZOLE 200MG/100ML 100 ML IV SCH ×2 (17:24→17:36)
[2020-05-04 19:36] LABS: Hematocrit 20.6 % (41.0-53.0)
[2020-05-04 19:38] LABS: Hemoglobin 6.9 g/dL (13.5-17.5)
[2020-05-04] MEDS ORDERED: TPN PER PHARMACY IV NR ×11 (20:00)
[2020-05-04] MEDS: LACTATED RINGER'S 1,000 ML IV SCH (20:00)
[2020-05-05] MEDS: ACCU-CHEK COMFORT CURVE STRIP VI SCH ×3 (00:04→12:00)
[2020-05-05 03:32] VITALS: BP 104/71
[2020-05-05] MEDS: HYDROmorphone HCL 2 MG/ML VL IV PRN ×4 (04:54→22:32)
[2020-05-05] MEDS: ONDANSETRON HCL 4 MG/2 ML VIAL IV PRN ×4 (04:54→22:32)
[2020-05-05 05:00] VITALS: BP 106/69
[2020-05-05] MEDS: VANCOMYCIN 1GM/250ML 250 ML IV SCH ×2 (05:08→17:16)
[2020-05-05] MEDS: MEROPENEM 1GM IVPB 100 ML IV SCH ×3 (05:53→22:10)
[2020-05-05] MEDS: InsuLIN REG 1unit/0.01ml Soln (100units/ml) SC SCH ×3 (05:56→12:00)
[2020-05-05] MEDS: Glucerna Carbsteady SHAKE Vanilla 8oz PO SCH ×3 (08:00→18:00)
[2020-05-05 08:13] LABS: Basophils # (auto) 0.2 10 ^3/uL (0-0.2); Eosinophils # (auto) 0.3 10 ^3/uL (0-0.8); Hematocrit 24.9 % (41.0-53.0); Hemoglobin 8.3 g/dL (13.5-17.5); Lymphocytes # (auto) 1.3 10 ^3/uL (0.4-5.4); Red Cell Distribution Width 13.9 % (11.8-14.3)
[2020-05-05 08:15] LABS: Basophils % (auto) 1.4 % (0.0-2.0); Eosinophils % (auto) 2.6 % (0.0-7.0); Lymphocytes % (auto) 10.2 % (10.0-50.0); Mean Corpuscular Hemoglobin 29.1 pg (28.0-32.0); Mean Corpuscular Hgb Conc. 33.3 g/dL (32.0-36.0); Mean Corpuscular Volume 87.5 fL (80.0-100.0); Monocytes # (auto) 0.8 10 ^3/uL (0-1.3); Monocytes % (auto) 6.1 % (0.0-12.0); Neutrophils # (auto) 10.5 10 ^3/uL (1.6-8.6); Neutrophils % (auto) 79.7 % (37.0-80.0); Platelet Count (auto) 461 10^3/uL (140-450); Red Blood Cells 2.85 10^6/uL (4.5-5.90); White Blood Cell 13.2 10^3/uL (4.4-10.8)
[2020-05-05 08:32] LABS: Albumin 1.7 g/dL (3.4-5.0); Calcium 9.1 mg/dL (8.5-10.1); Magnesium 2.4 mg/dL (1.6-2.6)
[2020-05-05 08:36] LABS: BUN/Creatinine Ratio 17.2; Bilirubin, Total 0.8 mg/dL (0.2-1.0); Phosphorus 3.4 mg/dL (2.5-4.90); Total Protein 6.3 g/dL (6.4-8.2)
[2020-05-05 09:00] VITALS: BP 114/71
[2020-05-05] MEDS: PANTOPRAZOLE 40 MG/10 ML VIAL INJ IV SCH (10:00)
[2020-05-05] MEDS: SODIUM CHLOR 0.9% PF (SALINE LOCK) 10ML VIAL/SYR IV SCH ×2 (10:00→22:11)
[2020-05-05 13:00] VITALS: BP 114/66
[2020-05-05 17:00] VITALS: BP 107/74
[2020-05-05] MEDS: FLUCONAZOLE 200MG/100ML 100 ML IV SCH ×2 (18:35→18:44)
[2020-05-05] MEDS: LACTATED RINGER'S 1,000 ML IV SCH (20:00)
[2020-05-05] MEDS ORDERED: TPN PER PHARMACY IV NR ×11 (20:00)
[2020-05-05 22:00] VITALS: BP 124/75
[2020-05-06] MEDS: HYDROmorphone HCL 2 MG/ML VL IV PRN ×6 (02:50→23:08)
[2020-05-06] MEDS: VANCOMYCIN 1GM/250ML 250 ML IV SCH ×2 (04:51→18:06)
[2020-05-06 05:00] VITALS: BP 111/76
[2020-05-06] MEDS: ACCU-CHEK COMFORT CURVE STRIP VI SCH ×5 (06:30→23:48)
[2020-05-06] MEDS: MEROPENEM 1GM IVPB 100 ML IV SCH ×3 (06:30→22:04)
[2020-05-06 06:31] LABS: Basophils # (auto) 0.2 10 ^3/uL (0-0.2); Eosinophils # (auto) 0.3 10 ^3/uL (0-0.8); Lymphocytes # (auto) 1.4 10 ^3/uL (0.4-5.4); Monocytes % (auto) 6.7 % (0.0-12.0); Neutrophils # (auto) 11.2 10 ^3/uL (1.6-8.6); Neutrophils % (auto) 79.7 % (37.0-80.0); Nucleated Red Blood Cells % 0.1 %; Red Cell Distribution Width 13.9 % (11.8-14.3); White Blood Cell 14.1 10^3/uL (4.4-10.8)
[2020-05-06 06:32] LABS: Basophils % (auto) 1.3 % (0.0-2.0); Eosinophils % (auto) 2.3 % (0.0-7.0); Hematocrit 24.1 % (41.0-53.0); Hemoglobin 8.1 g/dL (13.5-17.5); Mean Corpuscular Hemoglobin 29.7 pg (28.0-32.0); Mean Corpuscular Hgb Conc. 33.7 g/dL (32.0-36.0); Mean Corpuscular Volume 88.1 fL (80.0-100.0); Monocytes # (auto) 0.9 10 ^3/uL (0-1.3); Platelet Count (auto) 473 10^3/uL (140-450); Red Blood Cells 2.73 10^6/uL (4.5-5.90)
[2020-05-06] MEDS: InsuLIN REG 1unit/0.01ml Soln (100units/ml) SC SCH ×5 (06:32→23:48)
[2020-05-06 06:41] LABS: Potassium 4.1 mmol/L (3.5-5.1)
[2020-05-06 06:54] LABS: Albumin 1.6 g/dL (3.4-5.0); BUN/Creatinine Ratio 16.1; Bilirubin, Total 0.6 mg/dL (0.2-1.0); Calcium 8.6 mg/dL (8.5-10.1); Magnesium 2.4 mg/dL (1.6-2.6); Phosphorus 3.2 mg/dL (2.5-4.90); Total Protein 6.4 g/dL (6.4-8.2)
[2020-05-06] MEDS: Glucerna Carbsteady SHAKE Vanilla 8oz PO SCH ×3 (08:00→18:00)
[2020-05-06] MEDS: PANTOPRAZOLE 40 MG/10 ML VIAL INJ IV SCH (10:00)
[2020-05-06] MEDS: SODIUM CHLOR 0.9% PF (SALINE LOCK) 10ML VIAL/SYR IV SCH ×2 (10:00→22:04)
[2020-05-06 10:30] VITALS: BP 105/73
[2020-05-06] MEDS: ONDANSETRON HCL 4 MG/2 ML VIAL IV PRN ×4 (10:46→23:08)
[2020-05-06 16:30] VITALS: BP 114/74
[2020-05-06] MEDS: FLUCONAZOLE 200MG/100ML 100 ML IV SCH ×2 (18:00→18:08)
[2020-05-06] MEDS ORDERED: TPN PER PHARMACY IV NR ×10 (20:00)
[2020-05-06] MEDS: LACTATED RINGER'S 1,000 ML IV SCH (20:00)
[2020-05-06 21:50] VITALS: BP 121/79
[2020-05-07] VITALS (11 sets, daily range): BP systolic 91–127; BP diastolic 55–91
[2020-05-07] MEDS: VANCOMYCIN 1GM/250ML 250 ML IV SCH ×2 (04:42→17:47)
[2020-05-07] MEDS: HYDROmorphone HCL 2 MG/ML VL IV PRN ×4 (04:42→20:13)
[2020-05-07] MEDS: ONDANSETRON HCL 4 MG/2 ML VIAL IV PRN (04:42)
[2020-05-07] MEDS: MEROPENEM 1GM IVPB 100 ML IV SCH ×3 (05:13→21:45)
[2020-05-07] MEDS: InsuLIN REG 1unit/0.01ml Soln (100units/ml) SC SCH ×4 (05:14→23:32)
[2020-05-07] MEDS: ACCU-CHEK COMFORT CURVE STRIP VI SCH ×4 (05:14→23:32)
[2020-05-07 07:17] LABS: Basophils # (auto) 0.2 10 ^3/uL (0-0.2); Eosinophils # (auto) 0.3 10 ^3/uL (0-0.8); Lymphocytes # (auto) 1.1 10 ^3/uL (0.4-5.4); Monocytes # (auto) 0.7 10 ^3/uL (0-1.3); Neutrophils # (auto) 10.9 10 ^3/uL (1.6-8.6); White Blood Cell 13.2 10^3/uL (4.4-10.8)
[2020-05-07 07:19] LABS: Basophils % (auto) 1.7 % (0.0-2.0); Eosinophils % (auto) 2.4 % (0.0-7.0); Hematocrit 23.8 % (41.0-53.0); Hemoglobin 7.8 g/dL (13.5-17.5); Mean Corpuscular Hemoglobin 29.1 pg (28.0-32.0); Mean Corpuscular Hgb Conc. 32.9 g/dL (32.0-36.0); Mean Corpuscular Volume 88.6 fL (80.0-100.0); Monocytes % (auto) 5.5 % (0.0-12.0); Neutrophils % (auto) 82.4 % (37.0-80.0); Platelet Count (auto) 472 10^3/uL (140-450); Red Blood Cells 2.69 10^6/uL (4.5-5.90); Red Cell Distribution Width 13.9 % (11.8-14.3)
[2020-05-07 07:26] LABS: Albumin 1.6 g/dL (3.4-5.0); Calcium 8.8 mg/dL (8.5-10.1); Magnesium 2.4 mg/dL (1.6-2.6); Potassium 3.9 mmol/L (3.5-5.1)
[2020-05-07 07:29] LABS: BUN/Creatinine Ratio 19.1; Bilirubin, Total 0.5 mg/dL (0.2-1.0); Phosphorus 3.4 mg/dL (2.5-4.90); Total Protein 6.4 g/dL (6.4-8.2)
[2020-05-07] MEDS: Glucerna Carbsteady SHAKE Vanilla 8oz PO SCH ×3 (08:00→18:00)
[2020-05-07 08:58] LABS: INR 1.14 (0.9-1.15); Partial Thromboplastin Time 29.6 sec (23.0-31.2)
[2020-05-07] MEDS: fentaNYL CITRATE 100 MCG/2 ML VL IV ONE ×2 (09:00→11:20)
[2020-05-07] MEDS: MIDAZOLAM HCL 1MG/1ML-2 ML VIAL IV ONE ×2 (09:00→11:20)
[2020-05-07] MEDS ORDERED: LIDOCAINE 2%HCL (LOCAL ANESTH.) INJ 20ML MDV ONE (09:09)
[2020-05-07] MEDS ORDERED: IOHEXOL 300 MG/ML 100ML BOTTLE IJ ONE (09:16)
[2020-05-07] MEDS: PANTOPRAZOLE 40 MG/10 ML VIAL INJ IV SCH (09:25)
[2020-05-07] MEDS: SODIUM CHLOR 0.9% PF (SALINE LOCK) 10ML VIAL/SYR IV SCH ×2 (09:26→21:46)
[2020-05-07] MEDS ORDERED: HYDROmorphone HCL 2 MG/ML VL IV ONE (11:45)
[2020-05-07] MEDS: FLUCONAZOLE 200MG/100ML 100 ML IV SCH ×2 (17:19→19:02)
[2020-05-07] MEDS: LACTATED RINGER'S 1,000 ML IV SCH (20:00)
[2020-05-07] MEDS ORDERED: TPN PER PHARMACY IV NR ×11 (20:00)
[2020-05-08] MEDS: HYDROmorphone HCL 2 MG/ML VL IV PRN ×5 (00:35→19:06)
[2020-05-08 05:00] VITALS: BP 106/72
[2020-05-08] MEDS: VANCOMYCIN 1GM/250ML 250 ML IV SCH ×2 (05:26→17:13)
[2020-05-08] MEDS: MEROPENEM 1GM IVPB 100 ML IV SCH ×3 (06:00→21:47)
[2020-05-08] MEDS: InsuLIN REG 1unit/0.01ml Soln (100units/ml) SC SCH ×3 (06:04→18:26)
[2020-05-08] MEDS: ACCU-CHEK COMFORT CURVE STRIP VI SCH ×3 (06:04→18:22)
[2020-05-08 06:08] LABS: Basophils # (auto) 0.2 10 ^3/uL (0-0.2); Eosinophils # (auto) 0.4 10 ^3/uL (0-0.8); Monocytes # (auto) 0.7 10 ^3/uL (0-1.3); Red Blood Cells 2.78 10^6/uL (4.5-5.90); White Blood Cell 12.3 10^3/uL (4.4-10.8)
[2020-05-08 06:11] LABS: Basophils % (auto) 1.8 % (0.0-2.0); Eosinophils % (auto) 3.3 % (0.0-7.0); Hematocrit 24.2 % (41.0-53.0); Hemoglobin 7.9 g/dL (13.5-17.5); Lymphocytes # (auto) 1.4 10 ^3/uL (0.4-5.4); Lymphocytes % (auto) 11.3 % (10.0-50.0); Mean Corpuscular Hemoglobin 28.4 pg (28.0-32.0); Mean Corpuscular Hgb Conc. 32.6 g/dL (32.0-36.0); Mean Corpuscular Volume 87.1 fL (80.0-100.0); Monocytes % (auto) 5.7 % (0.0-12.0); Neutrophils # (auto) 9.6 10 ^3/uL (1.6-8.6); Neutrophils % (auto) 77.9 % (37.0-80.0); Platelet Count (auto) 476 10^3/uL (140-450); Red Cell Distribution Width 14.1 % (11.8-14.3)
[2020-05-08 06:25] LABS: Potassium 4.2 mmol/L (3.5-5.1)
[2020-05-08 06:48] LABS: Albumin 1.7 g/dL (3.4-5.0); BUN/Creatinine Ratio 16.9; Bilirubin, Total 0.5 mg/dL (0.2-1.0); Calcium 9.3 mg/dL (8.5-10.1); Magnesium 2.5 mg/dL (1.6-2.6); Phosphorus 3.5 mg/dL (2.5-4.90); Total Protein 6.5 g/dL (6.4-8.2)
[2020-05-08] MEDS: Glucerna Carbsteady SHAKE Vanilla 8oz PO SCH ×3 (08:00→18:22)
[2020-05-08 09:00] VITALS: BP 110/72
[2020-05-08] MEDS: SODIUM CHLOR 0.9% PF (SALINE LOCK) 10ML VIAL/SYR IV SCH ×2 (10:11→21:48)
[2020-05-08] MEDS: PANTOPRAZOLE 40 MG/10 ML VIAL INJ IV SCH (10:11)
[2020-05-08 13:00] VITALS: BP 112/73
[2020-05-08 16:45] VITALS: BP 113/79
[2020-05-08] MEDS: FLUCONAZOLE 200MG/100ML 100 ML IV SCH ×2 (18:22→19:07)
[2020-05-08] MEDS: TPN PER PHARMACY IV NR ×10 (20:04)
[2020-05-08] MEDS: LACTATED RINGER'S 1,000 ML IV SCH (20:14)
[2020-05-08 21:00] VITALS: BP 127/89
[2020-05-09] MEDS: ACCU-CHEK COMFORT CURVE STRIP VI SCH ×4 (00:30→18:23)
[2020-05-09] MEDS: HYDROmorphone HCL 2 MG/ML VL IV PRN ×5 (00:35→20:26)
[2020-05-09 05:00] VITALS: BP 118/79
[2020-05-09 05:59] LABS: Basophils # (auto) 0.2 10 ^3/uL (0-0.2); Basophils % (auto) 1.4 % (0.0-2.0); Hemoglobin 8.1 g/dL (13.5-17.5); Mean Corpuscular Volume 87.2 fL (80.0-100.0); Monocytes # (auto) 0.9 10 ^3/uL (0-1.3)
[2020-05-09 06:01] LABS: Eosinophils # (auto) 0.5 10 ^3/uL (0-0.8); Eosinophils % (auto) 3.4 % (0.0-7.0); Hematocrit 25.5 % (41.0-53.0); Lymphocytes # (auto) 1.4 10 ^3/uL (0.4-5.4); Lymphocytes % (auto) 10.3 % (10.0-50.0); Mean Corpuscular Hemoglobin 27.6 pg (28.0-32.0); Mean Corpuscular Hgb Conc. 31.7 g/dL (32.0-36.0); Monocytes % (auto) 6.2 % (0.0-12.0); Neutrophils % (auto) 78.7 % (37.0-80.0); Platelet Count (auto) 506 10^3/uL (140-450); Red Blood Cells 2.92 10^6/uL (4.5-5.90)
[2020-05-09 06:06] LABS: Potassium 4.1 mmol/L (3.5-5.1)
[2020-05-09 06:14] LABS: Albumin 1.7 g/dL (3.4-5.0); BUN/Creatinine Ratio 15.9; Bilirubin, Total 0.5 mg/dL (0.2-1.0); Calcium 9.6 mg/dL (8.5-10.1); Magnesium 2.6 mg/dL (1.6-2.6); Phosphorus 3.9 mg/dL (2.5-4.90); Total Protein 6.8 g/dL (6.4-8.2)
[2020-05-09] MEDS: MEROPENEM 1GM IVPB 100 ML IV SCH ×3 (06:26→22:04)
[2020-05-09] MEDS: InsuLIN REG 1unit/0.01ml Soln (100units/ml) SC SCH ×4 (06:28→18:00)
[2020-05-09 08:42] VITALS: BP 121/75
[2020-05-09] MEDS: TPN PER PHARMACY IV NR ×10 (09:53)
[2020-05-09] MEDS: SODIUM CHLOR 0.9% PF (SALINE LOCK) 10ML VIAL/SYR IV SCH ×2 (10:37→22:05)
[2020-05-09] MEDS: PANTOPRAZOLE 40 MG/10 ML VIAL INJ IV SCH (10:37)
[2020-05-09] MEDS: Glucerna Carbsteady SHAKE Vanilla 8oz PO SCH ×3 (10:38→18:21)
[2020-05-09 12:59] VITALS: BP 125/70
[2020-05-09 16:38] VITALS: BP 109/60
[2020-05-09 16:48] VITALS: BP 112/85
[2020-05-09] MEDS: FLUCONAZOLE 200MG/100ML 100 ML IV SCH ×2 (18:19→18:24)
[2020-05-09] MEDS ORDERED: TPN PER PHARMACY IV NR ×10 (20:00)
[2020-05-09] MEDS: LACTATED RINGER'S 1,000 ML IV SCH (20:13)
[2020-05-09 21:00] VITALS: BP 119/87
[2020-05-10] MEDS: ACCU-CHEK COMFORT CURVE STRIP VI SCH ×4 (00:24→18:15)
[2020-05-10] MEDS: HYDROmorphone HCL 2 MG/ML VL IV PRN ×5 (00:45→19:36)
[2020-05-10 04:44] VITALS: BP 126/89
[2020-05-10] MEDS: MEROPENEM 1GM IVPB 100 ML IV SCH ×3 (05:29→22:14)
[2020-05-10] MEDS: InsuLIN REG 1unit/0.01ml Soln (100units/ml) SC SCH ×4 (05:32→18:00)
[2020-05-10 09:00] VITALS: BP 123/77
[2020-05-10] MEDS: DOCUSATE SOD 100 MG CAP PO PRN (09:13)
[2020-05-10] MEDS: Glucerna Carbsteady SHAKE Vanilla 8oz PO SCH ×3 (09:14→18:14)
[2020-05-10] MEDS: PANTOPRAZOLE 40 MG/10 ML VIAL INJ IV SCH (09:14)
[2020-05-10] MEDS: SODIUM CHLOR 0.9% PF (SALINE LOCK) 10ML VIAL/SYR IV SCH ×2 (09:14→22:14)
[2020-05-10 12:47] LABS: Basophils # (auto) 0.2 10 ^3/uL (0-0.2); Eosinophils # (auto) 0.4 10 ^3/uL (0-0.8); Lymphocytes # (auto) 1.2 10 ^3/uL (0.4-5.4); Lymphocytes % (auto) 7.8 % (10.0-50.0); Monocytes # (auto) 0.9 10 ^3/uL (0-1.3); Neutrophils # (auto) 12.3 10 ^3/uL (1.6-8.6); Red Cell Distribution Width 14.1 % (11.8-14.3)
[2020-05-10 12:50] LABS: Basophils % (auto) 1.4 % (0.0-2.0); Hematocrit 23.6 % (41.0-53.0); Hemoglobin 7.9 g/dL (13.5-17.5); Mean Corpuscular Hemoglobin 29.5 pg (28.0-32.0); Mean Corpuscular Hgb Conc. 33.7 g/dL (32.0-36.0); Mean Corpuscular Volume 87.5 fL (80.0-100.0); Monocytes % (auto) 5.9 % (0.0-12.0); Neutrophils % (auto) 81.9 % (37.0-80.0); Platelet Count (auto) 488 10^3/uL (140-450); Red Blood Cells 2.69 10^6/uL (4.5-5.90); White Blood Cell 15.1 10^3/uL (4.4-10.8)
[2020-05-10 13:00] VITALS: BP 122/77
[2020-05-10 13:05] LABS: Albumin 1.9 g/dL (3.4-5.0); Calcium 9.5 mg/dL (8.5-10.1); Magnesium 2.6 mg/dL (1.6-2.6); Potassium 3.9 mmol/L (3.5-5.1)
[2020-05-10 13:09] LABS: BUN/Creatinine Ratio 20.5; Bilirubin, Total 0.5 mg/dL (0.2-1.0); Phosphorus 3.9 mg/dL (2.5-4.90); Pre Albumin 13.5 mg/dL (20.0-40.0); Total Protein 6.9 g/dL (6.4-8.2)
[2020-05-10 17:00] VITALS: BP 102/76
[2020-05-10] MEDS: FLUCONAZOLE 200MG/100ML 100 ML IV SCH ×2 (17:30→18:49)
[2020-05-10] MEDS ORDERED: TPN PER PHARMACY IV NR ×8 (20:00)
[2020-05-10 22:00] VITALS: BP 137/89
[2020-05-10] MEDS: LACTATED RINGER'S 1,000 ML IV SCH (22:14)
[2020-05-11] MEDS: HYDROmorphone HCL 2 MG/ML VL IV PRN ×5 (00:09→20:32)
[2020-05-11] MEDS: ONDANSETRON HCL 4 MG/2 ML VIAL IV PRN ×3 (00:09→20:32)
[2020-05-11] MEDS: ACCU-CHEK COMFORT CURVE STRIP VI SCH ×4 (00:09→18:01)
[2020-05-11 05:00] VITALS: BP 120/83
[2020-05-11 05:35] LABS: Eosinophils # (auto) 0.5 10 ^3/uL (0-0.8); Hemoglobin 7.9 g/dL (13.5-17.5)
[2020-05-11 05:37] LABS: Basophils # (auto) 0.2 10 ^3/uL (0-0.2); Basophils % (auto) 1.7 % (0.0-2.0); Eosinophils % (auto) 3.8 % (0.0-7.0); Lymphocytes # (auto) 1.5 10 ^3/uL (0.4-5.4); Lymphocytes % (auto) 10.5 % (10.0-50.0); Mean Corpuscular Hemoglobin 28.5 pg (28.0-32.0); Mean Corpuscular Hgb Conc. 32.7 g/dL (32.0-36.0); Mean Corpuscular Volume 87.1 fL (80.0-100.0); Monocytes % (auto) 6.8 % (0.0-12.0); Neutrophils # (auto) 11.2 10 ^3/uL (1.6-8.6); Neutrophils % (auto) 77.2 % (37.0-80.0); Platelet Count (auto) 492 10^3/uL (140-450); Red Blood Cells 2.76 10^6/uL (4.5-5.90); Red Cell Distribution Width 14.5 % (11.8-14.3); White Blood Cell 14.5 10^3/uL (4.4-10.8)
[2020-05-11 05:53] LABS: Potassium 4.4 mmol/L (3.5-5.1)
[2020-05-11 06:00] LABS: Albumin 1.8 g/dL (3.4-5.0); BUN/Creatinine Ratio 16.7; Bilirubin, Total 0.4 mg/dL (0.2-1.0); Calcium 9.5 mg/dL (8.5-10.1); Magnesium 2.4 mg/dL (1.6-2.6); Phosphorus 3.8 mg/dL (2.5-4.90); Total Protein 6.8 g/dL (6.4-8.2)
[2020-05-11] MEDS: InsuLIN REG 1unit/0.01ml Soln (100units/ml) SC SCH ×4 (06:00→18:00)
[2020-05-11] MEDS: MEROPENEM 1GM IVPB 100 ML IV SCH ×3 (06:06→22:14)
[2020-05-11 08:44] VITALS: BP 111/79
[2020-05-11] MEDS: DOCUSATE SOD 100 MG CAP PO PRN (10:12)
[2020-05-11] MEDS: Glucerna Carbsteady SHAKE Vanilla 8oz PO SCH ×3 (10:13→18:01)
[2020-05-11] MEDS: PANTOPRAZOLE 40 MG/10 ML VIAL INJ IV SCH (10:13)
[2020-05-11] MEDS: SODIUM CHLOR 0.9% PF (SALINE LOCK) 10ML VIAL/SYR IV SCH ×2 (10:13→22:14)
[2020-05-11 12:36] VITALS: BP 118/78
[2020-05-11] MEDS: FLUCONAZOLE 200MG/100ML 100 ML IV SCH ×2 (16:42→18:01)
[2020-05-11 17:30] VITALS: BP 118/88
[2020-05-11] MEDS: TPN PER PHARMACY IV NR ×9 (20:12)
[2020-05-11] MEDS: LACTATED RINGER'S 1,000 ML IV SCH (20:12)
[2020-05-11 22:00] VITALS: BP 106/66
[2020-05-12] MEDS: ACCU-CHEK COMFORT CURVE STRIP VI SCH ×4 (00:10→18:15)
[2020-05-12] MEDS: HYDROmorphone HCL 2 MG/ML VL IV PRN ×5 (03:35→19:37)
[2020-05-12 05:00] VITALS: BP 121/85
[2020-05-12 05:31] LABS: Eosinophils # (auto) 0.4 10 ^3/uL (0-0.8); Hemoglobin 8.1 g/dL (13.5-17.5); Monocytes # (auto) 0.8 10 ^3/uL (0-1.3)
[2020-05-12 05:33] LABS: Basophils # (auto) 0.3 10 ^3/uL (0-0.2); Eosinophils % (auto) 3.1 % (0.0-7.0); Hematocrit 24.7 % (41.0-53.0); Lymphocytes # (auto) 1.3 10 ^3/uL (0.4-5.4); Lymphocytes % (auto) 10.4 % (10.0-50.0); Mean Corpuscular Hemoglobin 28.5 pg (28.0-32.0); Mean Corpuscular Hgb Conc. 32.7 g/dL (32.0-36.0); Mean Corpuscular Volume 87.3 fL (80.0-100.0); Monocytes % (auto) 6.1 % (0.0-12.0); Neutrophils % (auto) 78.4 % (37.0-80.0); Nucleated Red Blood Cells % 0.1 %; Platelet Count (auto) 480 10^3/uL (140-450); Red Blood Cells 2.83 10^6/uL (4.5-5.90); Red Cell Distribution Width 14.3 % (11.8-14.3); White Blood Cell 12.8 10^3/uL (4.4-10.8)
[2020-05-12 05:51] LABS: Calcium 9.9 mg/dL (8.5-10.1); Potassium 4.2 mmol/L (3.5-5.1)
[2020-05-12] MEDS: InsuLIN REG 1unit/0.01ml Soln (100units/ml) SC SCH ×4 (05:51→18:00)
[2020-05-12] MEDS: MEROPENEM 1GM IVPB 100 ML IV SCH ×3 (05:55→22:16)
[2020-05-12 05:57] LABS: Albumin 1.9 g/dL (3.4-5.0); BUN/Creatinine Ratio 17.3; Bilirubin, Total 0.5 mg/dL (0.2-1.0); Magnesium 2.4 mg/dL (1.6-2.6); Phosphorus 3.8 mg/dL (2.5-4.90); Pre Albumin 14.1 mg/dL (20.0-40.0); Total Protein 7.1 g/dL (6.4-8.2)
[2020-05-12 08:57] VITALS: BP 108/69
[2020-05-12] MEDS: SODIUM CHLOR 0.9% PF (SALINE LOCK) 10ML VIAL/SYR IV SCH ×2 (09:44→22:16)
[2020-05-12] MEDS: DOCUSATE SOD 100 MG CAP PO PRN (09:44)
[2020-05-12] MEDS: PANTOPRAZOLE 40 MG/10 ML VIAL INJ IV SCH (09:44)
[2020-05-12] MEDS: Glucerna Carbsteady SHAKE Vanilla 8oz PO SCH ×3 (09:45→18:15)
[2020-05-12 13:00] VITALS: BP 123/75
[2020-05-12] MEDS: FLUCONAZOLE 200MG/100ML 100 ML IV SCH ×2 (17:00→18:58)
[2020-05-12 17:39] VITALS: BP 127/76
[2020-05-12] MEDS: TPN PER PHARMACY IV NR ×9 (19:40)
[2020-05-12] MEDS: LACTATED RINGER'S 1,000 ML IV SCH (19:45)
[2020-05-12] MEDS: ONDANSETRON HCL 4 MG/2 ML VIAL IV PRN (19:53)
[2020-05-12] MEDS ORDERED: TPN PER PHARMACY IV NR ×10 (20:00)
[2020-05-12 22:00] VITALS: BP 120/77
[2020-05-13] MEDS: ACCU-CHEK COMFORT CURVE STRIP VI SCH ×4 (00:14→17:37)
[2020-05-13] MEDS: traMADol HCL 50 MG TAB PO PRN ×2 (02:14→13:12)
[2020-05-13 05:00] VITALS: BP 118/76
[2020-05-13] MEDS: MEROPENEM 1GM IVPB 100 ML IV SCH ×3 (05:34→22:08)
[2020-05-13] MEDS: InsuLIN REG 1unit/0.01ml Soln (100units/ml) SC SCH ×4 (05:39→17:37)
[2020-05-13 08:31] VITALS: BP 112/74
[2020-05-13] MEDS: HYDROmorphone HCL 2 MG/ML VL IV PRN ×3 (08:45→22:07)
[2020-05-13] MEDS: Glucerna Carbsteady SHAKE Vanilla 8oz PO SCH ×3 (08:46→18:39)
[2020-05-13] MEDS: PANTOPRAZOLE 40 MG/10 ML VIAL INJ IV SCH (08:57)
[2020-05-13 10:00] LABS: Basophils # (auto) 0.3 10 ^3/uL (0-0.2); Hemoglobin 7.8 g/dL (13.5-17.5); Monocytes # (auto) 0.7 10 ^3/uL (0-1.3); Platelet Count (auto) 513 10^3/uL (140-450); White Blood Cell 11.8 10^3/uL (4.4-10.8)
[2020-05-13] MEDS: SODIUM CHLOR 0.9% PF (SALINE LOCK) 10ML VIAL/SYR IV SCH ×2 (10:00→22:08)
[2020-05-13 10:03] LABS: Basophils % (auto) 2.3 % (0.0-2.0); Eosinophils # (auto) 0.5 10 ^3/uL (0-0.8); Eosinophils % (auto) 4.2 % (0.0-7.0); Hematocrit 23.4 % (41.0-53.0); Lymphocytes # (auto) 1.7 10 ^3/uL (0.4-5.4); Lymphocytes % (auto) 14.6 % (10.0-50.0); Mean Corpuscular Hemoglobin 28.8 pg (28.0-32.0); Mean Corpuscular Hgb Conc. 33.3 g/dL (32.0-36.0); Mean Corpuscular Volume 86.5 fL (80.0-100.0); Neutrophils # (auto) 8.6 10 ^3/uL (1.6-8.6); Neutrophils % (auto) 72.9 % (37.0-80.0); Red Blood Cells 2.71 10^6/uL (4.5-5.90); Red Cell Distribution Width 14.3 % (11.8-14.3)
[2020-05-13 10:19] LABS: Potassium 3.8 mmol/L (3.5-5.1)
[2020-05-13 10:39] LABS: Albumin 1.8 g/dL (3.4-5.0); BUN/Creatinine Ratio 18.8; Bilirubin, Total 0.5 mg/dL (0.2-1.0); Calcium 10.1 mg/dL (8.5-10.1); Magnesium 2.1 mg/dL (1.6-2.6); Phosphorus 3.9 mg/dL (2.5-4.90); Total Protein 7.2 g/dL (6.4-8.2)
[2020-05-13] MEDS: DOCUSATE SOD 100 MG CAP PO PRN (12:00)
[2020-05-13 13:00] VITALS: BP 112/76
[2020-05-13 16:48] VITALS: BP 114/80
[2020-05-13] MEDS: FLUCONAZOLE 200MG/100ML 100 ML IV SCH ×2 (17:28→18:38)
[2020-05-13] MEDS ORDERED: TPN PER PHARMACY IV NR ×9 (20:00)
[2020-05-13 22:00] VITALS: BP 111/77
[2020-05-13] MEDS: LACTATED RINGER'S 1,000 ML IV SCH (22:08)
[2020-05-14] MEDS: traMADol HCL 50 MG TAB PO PRN (03:34)
[2020-05-14 05:18] VITALS: BP 122/80
[2020-05-14] MEDS: InsuLIN REG 1unit/0.01ml Soln (100units/ml) SC SCH ×5 (06:00→21:07)
[2020-05-14] MEDS: MEROPENEM 1GM IVPB 100 ML IV SCH ×3 (06:03→21:36)
[2020-05-14] MEDS: ACCU-CHEK COMFORT CURVE STRIP VI SCH ×5 (06:03→21:08)
[2020-05-14] MEDS: HYDROmorphone HCL 2 MG/ML VL IV PRN ×4 (06:04→21:34)
[2020-05-14 06:23] LABS: Basophils # (auto) 0.3 10 ^3/uL (0-0.2); Eosinophils # (auto) 0.4 10 ^3/uL (0-0.8); Hemoglobin 7.6 g/dL (13.5-17.5)
[2020-05-14 06:26] LABS: Basophils % (auto) 1.8 % (0.0-2.0); Eosinophils % (auto) 2.6 % (0.0-7.0); Hematocrit 23.2 % (41.0-53.0); Lymphocytes # (auto) 1.5 10 ^3/uL (0.4-5.4); Lymphocytes % (auto) 10.9 % (10.0-50.0); Mean Corpuscular Hgb Conc. 32.8 g/dL (32.0-36.0); Mean Corpuscular Volume 85.4 fL (80.0-100.0); Monocytes # (auto) 0.8 10 ^3/uL (0-1.3); Monocytes % (auto) 6.1 % (0.0-12.0); Neutrophils # (auto) 10.8 10 ^3/uL (1.6-8.6); Neutrophils % (auto) 78.6 % (37.0-80.0); Platelet Count (auto) 506 10^3/uL (140-450); Red Blood Cells 2.72 10^6/uL (4.5-5.90); Red Cell Distribution Width 14.6 % (11.8-14.3); White Blood Cell 13.8 10^3/uL (4.4-10.8)
[2020-05-14 06:41] LABS: Albumin 1.9 g/dL (3.4-5.0); Calcium 9.8 mg/dL (8.5-10.1); Magnesium 2.1 mg/dL (1.6-2.6)
[2020-05-14 06:46] LABS: BUN/Creatinine Ratio 18.3; Bilirubin, Total 0.5 mg/dL (0.2-1.0); Phosphorus 3.6 mg/dL (2.5-4.90)
[2020-05-14 09:00] VITALS: BP 111/68
[2020-05-14] MEDS: PANTOPRAZOLE 40 MG/10 ML VIAL INJ IV SCH (10:06)
[2020-05-14] MEDS: Glucerna Carbsteady SHAKE Vanilla 8oz PO SCH ×3 (10:06→18:15)
[2020-05-14] MEDS: DOCUSATE SOD 100 MG CAP PO PRN (10:06)
[2020-05-14] MEDS: SODIUM CHLOR 0.9% PF (SALINE LOCK) 10ML VIAL/SYR IV SCH ×2 (10:07→21:37)
[2020-05-14 13:00] VITALS: BP 125/75
[2020-05-14] MEDS: ONDANSETRON HCL 4 MG/2 ML VIAL IV PRN ×2 (16:57→21:34)
[2020-05-14 17:00] VITALS: BP 109/70
[2020-05-14] MEDS: FLUCONAZOLE 200MG/100ML 100 ML IV SCH ×2 (17:01→18:32)
[2020-05-14] MEDS ORDERED: TPN PER PHARMACY IV NR ×10 (20:00)
[2020-05-14] MEDS: LACTATED RINGER'S 1,000 ML IV SCH (21:36)
[2020-05-14 22:00] VITALS: BP 130/79
[2020-05-15] VITALS (17 sets, daily range): BP systolic 88–128; BP diastolic 59–96
[2020-05-15] MEDS: HYDROmorphone HCL 2 MG/ML VL IV PRN ×5 (02:55→22:43)
[2020-05-15] MEDS: ONDANSETRON HCL 4 MG/2 ML VIAL IV PRN (02:55)
[2020-05-15] MEDS: MEROPENEM 1GM IVPB 100 ML IV SCH ×3 (05:55→22:30)
[2020-05-15] MEDS: InsuLIN REG 1unit/0.01ml Soln (100units/ml) SC SCH (05:56)
[2020-05-15] MEDS: ACCU-CHEK COMFORT CURVE STRIP VI SCH (05:56)
[2020-05-15] MEDS: Glucerna Carbsteady SHAKE Vanilla 8oz PO SCH ×3 (08:00→18:06)
[2020-05-15] MEDS: SODIUM CHLOR 0.9% PF (SALINE LOCK) 10ML VIAL/SYR IV SCH ×2 (09:42→22:31)
[2020-05-15] MEDS: PANTOPRAZOLE 40 MG/10 ML VIAL INJ IV SCH (09:42)
[2020-05-15] MEDS: DOCUSATE SOD 100 MG CAP PO PRN (10:00)
[2020-05-15] MEDS ORDERED: LIDOCAINE 2%HCL (LOCAL ANESTH.) INJ 20ML MDV ONE (15:12)
[2020-05-15] MEDS ORDERED: IOHEXOL 300 MG/ML 100ML BOTTLE IJ ONE (15:12)
[2020-05-15] MEDS: FLUCONAZOLE 200MG/100ML 100 ML IV SCH ×2 (17:00→18:06)
[2020-05-15] MEDS: LACTATED RINGER'S 1,000 ML IV SCH (22:00)
[2020-05-16 05:00] VITALS: BP 110/74
[2020-05-16] MEDS: MEROPENEM 1GM IVPB 100 ML IV SCH ×3 (05:52→22:00)
[2020-05-16] MEDS: HYDROmorphone HCL 2 MG/ML VL IV PRN ×5 (07:05→23:27)
[2020-05-16 07:28] LABS: Basophils # (auto) 0.1 10 ^3/uL (0-0.2); Eosinophils # (auto) 0.4 10 ^3/uL (0-0.8); Mean Corpuscular Volume 85.3 fL (80.0-100.0); Monocytes # (auto) 0.7 10 ^3/uL (0-1.3); Platelet Count (auto) 439 10^3/uL (140-450); White Blood Cell 10.8 10^3/uL (4.4-10.8)
[2020-05-16 07:30] LABS: Basophils % (auto) 1.4 % (0.0-2.0); Eosinophils % (auto) 3.5 % (0.0-7.0); Hematocrit 22.7 % (41.0-53.0); Hemoglobin 7.5 g/dL (13.5-17.5); Lymphocytes # (auto) 1.4 10 ^3/uL (0.4-5.4); Lymphocytes % (auto) 12.8 % (10.0-50.0); Mean Corpuscular Hemoglobin 28.4 pg (28.0-32.0); Mean Corpuscular Hgb Conc. 33.3 g/dL (32.0-36.0); Monocytes % (auto) 6.5 % (0.0-12.0); Neutrophils # (auto) 8.2 10 ^3/uL (1.6-8.6); Neutrophils % (auto) 75.8 % (37.0-80.0); Nucleated Red Blood Cells % 0.1 %; Red Blood Cells 2.66 10^6/uL (4.5-5.90); Red Cell Distribution Width 14.5 % (11.8-14.3)
[2020-05-16 07:44] LABS: BUN/Creatinine Ratio 14.8; Calcium 9.8 mg/dL (8.5-10.1); Potassium 3.9 mmol/L (3.5-5.1)
[2020-05-16 07:47] LABS: Bilirubin, Total 0.7 mg/dL (0.2-1.0); Total Protein 6.9 g/dL (6.4-8.2)
[2020-05-16] MEDS: Glucerna Carbsteady SHAKE Vanilla 8oz PO SCH ×3 (08:00→17:11)
[2020-05-16 09:00] VITALS: BP 115/77
[2020-05-16] MEDS: SODIUM CHLOR 0.9% PF (SALINE LOCK) 10ML VIAL/SYR IV SCH ×2 (10:00→22:00)
[2020-05-16] MEDS: PANTOPRAZOLE 40 MG/10 ML VIAL INJ IV SCH (10:00)
[2020-05-16] MEDS: DOCUSATE SOD 100 MG CAP PO PRN (12:20)
[2020-05-16 13:00] VITALS: BP 98/63
[2020-05-16 16:42] VITALS: BP 111/72
[2020-05-16] MEDS: FLUCONAZOLE 200MG/100ML 100 ML IV SCH ×2 (16:51→17:50)
[2020-05-16 21:36] VITALS: BP 116/79
[2020-05-17] MEDS: LACTATED RINGER'S 1,000 ML IV SCH ×2 (04:00→21:11)
[2020-05-17 05:16] VITALS: BP 129/74
[2020-05-17] MEDS: HYDROmorphone HCL 2 MG/ML VL IV PRN ×4 (05:50→21:12)
[2020-05-17] MEDS: ONDANSETRON HCL 4 MG/2 ML VIAL IV PRN ×5 (05:50→21:12)
[2020-05-17] MEDS: MEROPENEM 1GM IVPB 100 ML IV SCH ×3 (06:22→21:12)
[2020-05-17 09:00] VITALS: BP 111/71
[2020-05-17] MEDS: SODIUM CHLOR 0.9% PF (SALINE LOCK) 10ML VIAL/SYR IV SCH (09:20)
[2020-05-17] MEDS: Glucerna Carbsteady SHAKE Vanilla 8oz PO SCH ×3 (09:21→17:09)
[2020-05-17] MEDS: PANTOPRAZOLE 40 MG/10 ML VIAL INJ IV SCH (09:21)
[2020-05-17 11:11] LABS: Basophils # (auto) 0.1 10 ^3/uL (0-0.2); Basophils % (auto) 1.4 % (0.0-2.0); Eosinophils # (auto) 0.4 10 ^3/uL (0-0.8); Eosinophils % (auto) 4.1 % (0.0-7.0); Hematocrit 24.1 % (41.0-53.0); Hemoglobin 8.1 g/dL (13.5-17.5); Lymphocytes # (auto) 1.4 10 ^3/uL (0.4-5.4); Lymphocytes % (auto) 13.7 % (10.0-50.0); Mean Corpuscular Hemoglobin 28.9 pg (28.0-32.0); Mean Corpuscular Hgb Conc. 33.7 g/dL (32.0-36.0); Mean Corpuscular Volume 85.8 fL (80.0-100.0); Monocytes # (auto) 0.7 10 ^3/uL (0-1.3); Monocytes % (auto) 6.7 % (0.0-12.0); Neutrophils # (auto) 7.8 10 ^3/uL (1.6-8.6); Neutrophils % (auto) 74.1 % (37.0-80.0); Nucleated Red Blood Cells % 0.1 %; Platelet Count (auto) 467 10^3/uL (140-450); Red Blood Cells 2.81 10^6/uL (4.5-5.90); Red Cell Distribution Width 14.5 % (11.8-14.3); White Blood Cell 10.5 10^3/uL (4.4-10.8)
[2020-05-17] MEDS ORDERED: LACTULOSE 20Gm/30ML SOLN PO PRN (12:00)
[2020-05-17 17:00] VITALS: BP 128/81
[2020-05-17] MEDS: FLUCONAZOLE 200MG/100ML 100 ML IV SCH ×2 (17:09→18:03)
[2020-05-17 22:00] VITALS: BP 109/78
[2020-05-18] MEDS: SODIUM CHLOR 0.9% PF (SALINE LOCK) 10ML VIAL/SYR IV SCH ×3 (00:50→22:29)
[2020-05-18] MEDS: HYDROmorphone HCL 2 MG/ML VL IV PRN ×3 (02:27→17:28)
[2020-05-18] MEDS: MEROPENEM 1GM IVPB 100 ML IV SCH ×3 (05:41→22:28)
[2020-05-18 06:41] LABS: Eosinophils # (auto) 0.5 10 ^3/uL (0-0.8); Hematocrit 23.2 % (41.0-53.0); Monocytes # (auto) 0.7 10 ^3/uL (0-1.3); White Blood Cell 10.1 10^3/uL (4.4-10.8)
[2020-05-18 06:43] LABS: Basophils # (auto) 0.1 10 ^3/uL (0-0.2); Basophils % (auto) 1.5 % (0.0-2.0); Eosinophils % (auto) 4.9 % (0.0-7.0); Hemoglobin 7.7 g/dL (13.5-17.5); Lymphocytes # (auto) 1.7 10 ^3/uL (0.4-5.4); Lymphocytes % (auto) 16.6 % (10.0-50.0); Mean Corpuscular Hemoglobin 28.2 pg (28.0-32.0); Mean Corpuscular Hgb Conc. 33.4 g/dL (32.0-36.0); Mean Corpuscular Volume 84.5 fL (80.0-100.0); Monocytes % (auto) 6.5 % (0.0-12.0); Neutrophils # (auto) 7.1 10 ^3/uL (1.6-8.6); Neutrophils % (auto) 70.5 % (37.0-80.0); Platelet Count (auto) 456 10^3/uL (140-450); Red Blood Cells 2.75 10^6/uL (4.5-5.90); Red Cell Distribution Width 14.5 % (11.8-14.3)
[2020-05-18 09:00] VITALS: BP 112/70
[2020-05-18] MEDS: PANTOPRAZOLE 40 MG/10 ML VIAL INJ IV SCH (10:41)
[2020-05-18] MEDS: Glucerna Carbsteady SHAKE Vanilla 8oz PO SCH ×3 (10:41→18:26)
[2020-05-18 17:00] VITALS: BP 132/92
[2020-05-18] MEDS: FLUCONAZOLE 200MG/100ML 100 ML IV SCH ×2 (17:14→18:26)
[2020-05-18 20:00] VITALS: BP 117/84
[2020-05-18] MEDS: traMADol HCL 50 MG TAB PO PRN (22:30)
[2020-05-19] MEDS: ONDANSETRON HCL 4 MG/2 ML VIAL IV PRN ×2 (05:17→22:19)
[2020-05-19] MEDS: MEROPENEM 1GM IVPB 100 ML IV SCH ×3 (05:17→22:19)
[2020-05-19 05:38] LABS: Basophils # (auto) 0.1 10 ^3/uL (0-0.2); Basophils % (auto) 0.9 % (0.0-2.0); Eosinophils # (auto) 0.4 10 ^3/uL (0-0.8); Hemoglobin 8.1 g/dL (13.5-17.5); Lymphocytes # (auto) 1.1 10 ^3/uL (0.4-5.4); Monocytes # (auto) 0.8 10 ^3/uL (0-1.3); Neutrophils # (auto) 13.2 10 ^3/uL (1.6-8.6); Neutrophils % (auto) 84.2 % (37.0-80.0); Red Cell Distribution Width 15.1 % (11.8-14.3)
[2020-05-19 05:40] LABS: Eosinophils % (auto) 2.8 % (0.0-7.0); Hematocrit 24.8 % (41.0-53.0); Lymphocytes % (auto) 7.3 % (10.0-50.0); Mean Corpuscular Hemoglobin 27.6 pg (28.0-32.0); Mean Corpuscular Hgb Conc. 32.7 g/dL (32.0-36.0); Mean Corpuscular Volume 84.4 fL (80.0-100.0); Monocytes % (auto) 4.8 % (0.0-12.0); Platelet Count (auto) 497 10^3/uL (140-450); Red Blood Cells 2.94 10^6/uL (4.5-5.90); White Blood Cell 15.6 10^3/uL (4.4-10.8)
[2020-05-19 06:00] LABS: Calcium 10.5 mg/dL (8.5-10.1); Potassium 3.6 mmol/L (3.5-5.1)
[2020-05-19 06:05] LABS: BUN/Creatinine Ratio 10.8; Bilirubin, Total 0.4 mg/dL (0.2-1.0); Total Protein 6.9 g/dL (6.4-8.2)
[2020-05-19] MEDS: Glucerna Carbsteady SHAKE Vanilla 8oz PO SCH ×3 (08:00→18:00)
[2020-05-19] MEDS: SODIUM CHLOR 0.9% PF (SALINE LOCK) 10ML VIAL/SYR IV SCH ×2 (10:00→22:19)
[2020-05-19 10:32] VITALS: BP 113/69
[2020-05-19] MEDS: PANTOPRAZOLE 40 MG/10 ML VIAL INJ IV SCH (10:38)
[2020-05-19] MEDS: traMADol HCL 50 MG TAB PO PRN ×2 (15:42→23:45)
[2020-05-19] MEDS: FLUCONAZOLE 200MG/100ML 100 ML IV SCH ×2 (16:22→18:12)
[2020-05-20] VITALS: BP 119/78
[2020-05-20 05:48] LABS: Basophils # (auto) 0.2 10 ^3/uL (0-0.2); Eosinophils # (auto) 0.5 10 ^3/uL (0-0.8); Hemoglobin 7.8 g/dL (13.5-17.5); Lymphocytes # (auto) 1.7 10 ^3/uL (0.4-5.4); Mean Corpuscular Volume 84.4 fL (80.0-100.0); Monocytes # (auto) 0.6 10 ^3/uL (0-1.3); White Blood Cell 10.3 10^3/uL (4.4-10.8)
[2020-05-20 05:50] LABS: Basophils % (auto) 1.5 % (0.0-2.0); Eosinophils % (auto) 5.1 % (0.0-7.0); Lymphocytes % (auto) 16.9 % (10.0-50.0); Mean Corpuscular Hemoglobin 28.6 pg (28.0-32.0); Mean Corpuscular Hgb Conc. 33.9 g/dL (32.0-36.0); Monocytes % (auto) 5.6 % (0.0-12.0); Neutrophils # (auto) 7.3 10 ^3/uL (1.6-8.6); Neutrophils % (auto) 70.9 % (37.0-80.0); Platelet Count (auto) 459 10^3/uL (140-450); Red Blood Cells 2.73 10^6/uL (4.5-5.90); Red Cell Distribution Width 14.9 % (11.8-14.3)
[2020-05-20] MEDS: MEROPENEM 1GM IVPB 100 ML IV SCH ×2 (05:51→15:17)
[2020-05-20 08:37] VITALS: BP 130/79
[2020-05-20] MEDS: PANTOPRAZOLE 40 MG/10 ML VIAL INJ IV SCH (09:50)
[2020-05-20] MEDS: Glucerna Carbsteady SHAKE Vanilla 8oz PO SCH ×2 (09:50→15:17)
[2020-05-20] MEDS: SODIUM CHLOR 0.9% PF (SALINE LOCK) 10ML VIAL/SYR IV SCH (09:51)
[2020-05-20 12:47] VITALS: BP 114/80
[2020-05-20] MEDS: traMADol HCL 50 MG TAB PO PRN (15:16)
[2020-05-20 17:00] VITALS: BP 148/85
== END 2020-05-20 18:50 | disposition home or self-care (01) | DRG 871 ==
LOC: CENTRAL 07:27 → ER 07:27 → OVERFLOW 07:28 → CENTRAL 17:45 → WEST WING 04-14 12:28 → CENTRAL 05-05 21:40
PROVIDERS: ADMIT Nurse Practitioner Acute Care; ATTEND Internal Medicine
PROC: B41F1ZZ Fluoroscopy of Right Lower Extremity Arteries using Low Osmolar Contrast (ICD-10-PCS; 2020-04-15)
PROC: B4141ZZ Fluoroscopy of Superior Mesenteric Artery using Low Osmolar Contrast (ICD-10-PCS; 2020-04-15)
PROC: B4101ZZ Fluoroscopy of Abdominal Aorta using Low Osmolar Contrast (ICD-10-PCS; 2020-04-15)
PROC: B4121ZZ Fluoroscopy of Hepatic Artery using Low Osmolar Contrast (ICD-10-PCS; 2020-04-15)
PROC: 05HB33Z Insertion of Infusion Device into Right Basilic Vein, Percutaneous Approach (ICD-10-PCS; 2020-04-16)
PROC: B54MZZA Ultrasonography of Right Upper Extremity Veins, Guidance (ICD-10-PCS; 2020-04-16)
PROC: 0W9G3ZZ Drainage of Peritoneal Cavity, Percutaneous Approach (ICD-10-PCS; 2020-04-25)
PROC: 0F9G30Z Drainage of Pancreas with Drainage Device, Percutaneous Approach (ICD-10-PCS; 2020-04-25)
PROC: 0F2 Hepatobiliary System and Pancreas, Change (ICD-10-PCS; 2020-04-30)
PROC: 0W9B3ZZ Drainage of Left Pleural Cavity, Percutaneous Approach (ICD-10-PCS; 2020-04-30)
PROC: 30233N1 Transfusion of Nonautologous Red Blood Cells into Peripheral Vein, Percutaneous Approach (ICD-10-PCS; 2020-05-04)
PROC: 0F798ZZ Dilation of Common Bile Duct, Via Natural or Artificial Opening Endoscopic (ICD-10-PCS; principal; 2020-05-05)
PROC: BF101ZZ Fluoroscopy of Bile Ducts using Low Osmolar Contrast (ICD-10-PCS; 2020-05-05)
PROC: 0F2 Hepatobiliary System and Pancreas, Change (ICD-10-PCS; 2020-05-07)
PROC: 0W9B3ZZ Drainage of Left Pleural Cavity, Percutaneous Approach (ICD-10-PCS; 2020-05-15)
DX: A41.9 Sepsis, unspecified organism (principal); K85.10 Biliary acute pancreatitis without necrosis or infection; J18.9 Pneumonia, unspecified organism; E44.0 Moderate protein-calorie malnutrition; J90 Pleural effusion, not elsewhere classified; B15.9 Hepatitis A without hepatic coma; E87.6 Hypokalemia; F10.10 Alcohol abuse, uncomplicated; I10 Essential (primary) hypertension; N20.0 Calculus of kidney; K70.9 Alcoholic liver disease, unspecified; B19.20 Unspecified viral hepatitis C without hepatic coma; K80.50 Calculus of bile duct without cholangitis or cholecystitis without obstruction; D63.8 Anemia in other chronic diseases classified elsewhere; E74.39 Other disorders of intestinal carbohydrate absorption; Z20.828 Contact with and (suspected) exposure to other viral communicable diseases; Z68.26 Body mass index [BMI] 26.0-26.9, adult; Z80.0 Family history of malignant neoplasm of digestive organs; Z82.3 Family history of stroke; Z83.3 Family history of diabetes mellitus; Z87.442 Personal history of urinary calculi; Z90.49 Acquired absence of other specified parts of digestive tract; K59.00 Constipation, unspecified
CPT/HCPCS: 10022; 36415; 36569; 71045; 74018; 74150; 74176; 74177; 74181; 75625; 76000; 76001; 76937; 76942; 77012; 80048; 80053; 80061; 80076; 80202; 81001; 82040; 82150; 82247; 82962; 83036; 83690; 83735; 83986; 84100; 84132; 84443; 84478; 84484; 85007; 85014; 85018; 85025; 85027; 85610; 85730; 86704; 86706; 86708; 86803; 86850; 86900; 86901; 86920; 87040; 87070; 87081; 87086; 87205; 87340; 87426; 89051; 93005; 96361; 96374; 96375; 99152; 99153; C1729; C1769; C9113; G0378; J0330; J1450; J1815; J1885; J1956; J2001; J2185; J2250; J2405; J2543; J2704; J3480; J7131; Q9967